=== PATIENT | female | born 1935 | race Caucasian/White ===

== ENCOUNTER 2019-03-02 15:31 | Observation (INO) | payer MEDICARE, BC ==
[2019-03-02 17:23] LABS: BLOOD UREA NITROGEN,BUN 23 mg/dL (7.0-18.0); CARBON DIOXIDE,CO2 28.6 mmol/L (21.0-32.0); CHLORIDE,CL 106 mmol/L (98-107); GLUCOSE RANDOM 155 mg/dL (74-106); LIPASE 104 U/L (73-393); POTASSIUM,K 3.1 mmol/L (3.5-5.1); SODIUM,NA 145 mmol/L (136-145)
--- NOTE | 2019-03-02 17:44 | CR ---
INDICATION: Pain TECHNIQUE: Frontal view of the chest. COMPARISON: None FINDINGS/IMPRESSION: 1. There is an indeterminate large irregular calcific density projecting over the heart. Further evaluation with CT is recommended for better characterization. 2. The cardiac silhouette is mildly enlarged. There is no airspace consolidation or pulmonary vascular congestion. There is no sizable pleural effusion or pneumothorax. 3. The visualized osseous structures are unremarkable. Dictated by Eduardo Prieto MD @ Mar 02 2019 5:39PM Signed by Dr. Eduardo Prieto @ Mar 02 2019 5:42PM
[2019-03-02] MEDS ORDERED: Iopamidol 755 MG/ML 200 ML Multipack Bottle IVPUSH ONE (18:56)
--- NOTE | 2019-03-02 19:38 | CT ---
INDICATION: Confusion today. Possible history of head trauma in the past. Daughter states patient has had eye bleeding into the head before. COMPARISON: None available. TECHNIQUE: CT examination of the head was performed with 3 mm thick axial sections without intravenous contrast. Images were obtained from the vertex of the skull through the skull base, and I examined the images with the brain and bone windows. Please note that all CT scans at this facility use dose modulation, iterative reconstruction, and/or weight-based dosing when appropriate to reduce radiation dose to as low as reasonably achievable. FINDINGS: : The brain is normal in appearance for the patient`s age on today`s study, with no sign of mass lesion, mass effect, hemorrhage, or edema. Incidental note is made of prominence of perivascular spaces in the inferior basal ganglia, left greater than right. 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 Minor small vessel ischemic changes are seen in the inferior dalton bilaterally. There is a moderate dilatation of the ventricles and mild dilatation of the sulci representing moderate central atrophy, consistent with the patient`s age. There is mild periventricular hypodensity from age appropriate small vessel ischemia. The visualized portions of the orbits are normal in appearance status post cataract surgery. Incidental note is made of senile calcifications along the nasal aspect of both anterior globes. The visualized portions of the paranasal sinuses and mastoids are clear. The osseous structures are normal in their appearance with no sign of abnormality in the skull base or calvarium. IMPRESSION: Normal noncontrast CT of the head for the patient`s age. Moderate, age-appropriate central atrophy and mild, age-appropriate small-vessel ischemic changes. Please note that all CT scans at this facility use dose modulation, iterative reconstruction, and/or weight-based dosing when appropriate to reduce radiation dose to as low as reasonably achievable. Dictated by Yordan Tolentino MD @ Mar 02 2019 7:32PM Signed by Dr. Yordan Tolenitno @ Mar 02 2019 7:36PM
--- NOTE | 2019-03-02 19:55 | CT ---
INDICATION: Abnormal chest x-ray. Pain. TECHNIQUE: CT chest was acquired with 75 cc Isovue 370 IV contrast. COMPARISON: Chest x-ray March 02, 2019. FINDINGS: Lungs and pleural: Solitary noncalcified 7 mm nodule is in the superior posterior right lower lobe on series 202, image 49. Remainder of the lungs are clear. No pleural effusions, pleural thickening, or pneumothorax. Heart and vasculature: Moderate cardiomegaly. There is an irregular calcification in the wall of the left ventricle.Great vessels are normal in caliber. Lymph nodes/mediastinum: No mediastinal, hilar, or axillary adenopathy. Thyroid gland is normal. Chest wall: No masses. Upper abdomen: There is a moderate-sized gallbladder stone with evidence of gallbladder wall edema. Right kidney is atrophic. Bones: Unremarkable for age. IMPRESSION: 1. Relatively large irregular calcification is present in the wall of the left heart ventricle. 2. Solitary 7 mm pulmonary nodule in the right lower lobe is indeterminate. This should be managed per Fleischner society guidelines which are provided below. 3. Cholelithiasis with gallbladder wall edema consistent with acute cholecystitis. SOCIETY GUIDELINES - SOLID NODULES: SINGLE LOW RISK - nodule less than 6 mm: No routine follow-up. - nodule 6-8 mm: CT at 6-12 months, then consider CT at 18-24 months. - nodule greater than 8 mm: Consider CT at 3 months, PET/CT or tissue sampling. SINGLE HIGH RISK - nodule less than 6 mm: Optional CT at 12 months. - nodule 6-8 mm: CT at 6-12 months, then CT at 18-24 months. - nodule greater than 8 mm: Consider CT at 3 months, PET/CT or tissue sampling. Please note that all CT scans at this facility use dose modulation, iterative reconstruction, and/or weight-based dosing when appropriate to reduce radiation dose to as low as reasonably achievable. Dictated by Jimmy Sanchez MD @ Mar 02 2019 7:38PM Signed by Dr. Jimmy Sanchez @ Mar 02 2019 7:54PM
[2019-03-02] MEDS ORDERED: Sodium Chloride 0.9% 1,000 ML IV ONE (20:14)
[2019-03-02] MEDS ORDERED: Piperacillin/Tazobactam 3.375 GM in Sodium Chloride 0.9% 50 ML IV ONE (20:15)
--- NOTE | 2019-03-02 20:18 | EDM.PDOC ---
ED HPI GENERAL MEDICAL PROBLEM - General Chief Complaint: General Stated Complaint: PT CLAIMS POSSIBLE UTI. DIZZY CONFUSED. Time Seen by Provider: 03/02/19 16:00 - History of Present Illness INITIAL COMMENTS - FREE TEXT/NARRATIVE: HPI 83-year-old female presents from a group home with one day of increased weakness in the setting of one week of mildly increased confusion, patient notes mild GI upset without nausea, vomiting, diarrhea. Patient continues to take PO adequately pass urine, flatus, stool baseline, no further known changes in her health. History obtained from: patient and patients adult daughter. Medication list reviewed and notable for losartan 100 mg q.d., metoprolol tartrate 50 mg b.i.d., [place] 10-325 b.i.d., furosemide 60 mg q.d., primidone 150 mg QID M///SocHx notable for: please see HPI; remainder reviewed with patient and in chart. ROS: Negative constitutional, eye, cardiovascular, pulmonary, GI, , MSK, skin , neurologic, psychiatric, endocrine unless noted in the HPI. Exam HR 90, RR 18, BP 151/103, T 36.9C, SaO2 96% on room air. Gen: Pleasant, non-toxic appearing, resting comfortably. HEENT: Normocephalic, atraumatic Resp: Clear to auscultation bilaterally, normal work of breathing with no accessory muscle usage. Card: Regular rate and rhythm with no murmurs rubs or gallops. No JVD. No pedal edema bilaterally. GI: Nontender to palpation throughout all quadrants. Nondistended. : No CVA tenderness to percussion bilaterally. No suprapubic tenderness or palpable masses. MSK: No visible deformities, strength and tone within normal limits. Skin: Normal color with no visible lesions. Neuro: alert and oriented to self and location, no facial asymmetry, no gaze preference, no slurring of speech. Pupils equal and reactive, EOMI, no facial asymmetry, no nystagmus, phonation intact, SCM 5/5 bilaterally. Cerebellar: bilateral upper extremities without dysmetria. Psych: Mood and affect appropriate. Labs / Imaging (pertinent): WBC 11.6, HB 14.4, sodium 145, potassium 3.1, glucose 155, TSH 0.40, AST 35, ALT 38, total bilirubin 0.6, alkaline phosphatase 127. Troponin < 0.050. CXR: 1. There is an indeterminate large irregular calcific density projecting over the heart. Further evaluation with CT is recommended for better characterization 2. The cardiac silhouette is mildly enlarged There is no airspace consolidation or pulmonary vascular congestion. There is no sizable pleural effusion or pneumothorax. 3. The visualized osseous structures are unremarkable. EKG: SR 84 bpm, first-degree AV block, RBBB, no ST segment elevations or depressions. No hyperacute T waves. UA few bacteria, rare epithelial cells, negative nitrate, negative leukocyte esterase. CT chest: 1. Relatively large irregular calcification is present in the wall of the left heart ventricle. 2 Solitary 7mm pulmonary nodule in the right lower lobe is indeterminate. This should be managed per Fleischner society guidelines which are provided below. 3. Cholelithiasis with gallbladder wall edema consistent with acute cholecystitis. MDM Previous chart, nursing note, and vitals reviewed. A: 83-year-old female presents from a group home with one day of increased weakness in the setting of one week of mildly increased confusion, patient notes mild GI upset without nausea, vomiting, diarrhea. DDx: CVA, ACS/UA, UTI, pneumonia, electrolyte abnormalities,anemia, hypothyroidism, hypothermia. Evaluation: * CVA: Examination without evidence of focal neuro deficit and history without evidence of resolved focal neuro deficit making stroke or TIA unlikely. * ACS/UA: Doubt ACS given a nonischemic EKG and negative troponin, history without clear evidence of symptoms consistent with unstable angina. * UTI: Urinalysis without evidence of infection. * Pneumonia: no clear evidence of pneumonia by imaging. Abnormality noted on plain film, this led to a contrasted CT which was without clear evidence of acute cardiopulmonary abnormality. Incidental findings are noted below. * Heme/Lytes/Thyroid: CBC, BMP, and TSH are clinically within normal limits. * Other: Incidental finding on contrast to the CT noting gallbladder wall thickening c/w acute cholecystitis. While this cannot be definitively excluded is a poor fit for the overall symptoms (absence of abdominal pain, normal liver enzymes). Dr. Dietz, the general surgeon contemporary or modern dancer, was consulted, recommended admission to the hospitalist, IV antibiotics (Zosyn), IVF, and repeat evaluation in the morning. Impression: weakness, ? cholecystitis. (please reference below for remainder of encounter information) Critical Care Time Organ system(s): GI. Intervention: Assessment of the patient, interpretation of studies, communication related to patient care. Time: 30 minutes were spent directly related to patient care exclusive of separately billed procedures - Related Data Allergies Allergy/AdvReac Type Severity Reaction Status Date / Time morphine Allergy Cannot Verified 03/02/19 16:07 Remember pregabalin [From Lyrica] Allergy Cannot Verified 03/02/19 16:07 Remember Home Meds: Home Meds Acetaminophen [Tylenol Arthritis Pain] 650 mg PO Q4H PRN 03/02/19 [History] Alum Hydrox/Mag Hydrox/Simeth [Maalox Advanced] 15 - 30 ml PO ASDIRECTED [History] Calcium Carb, Citrate/Vit D3 [Calcium + D3 ER Tablet] 1 tab PO BID 03/02/19 [ History] Carboxymethylcellulose Sodium [Artificial Tears] 1 drop EYEBOTH QID PRN [History] Celecoxib [CeleBREX] 200 mg PO DAILY 03/02/19 [History] Furosemide [Lasix] 20 mg PO DAILY 03/02/19 [History] Glucosam/Chond/Collagen/Hyalur [Glucosamine Chondroitin] 2 tab PO DAILY [History] Hydrocodone/Acetaminophen [[place] 10-325 Tablet] 1 tab PO Q6H PRN 03/02/19 [ History] Hydrocortisone [Hydrocortisone 2.5% Crm] 1 dose TOP ASDIRECTED 03/02/19 [History ] Loperamide [Imodium] 2 mg PO ASDIRECTED 03/02/19 [History] Losartan [Cozaar] 100 mg PO DAILY 03/02/19 [History] Magnesium Hydroxide [Milk of Magnesia] 30 ml PO ASDIRECTED 03/02/19 [History] Metoprolol Succinate [Toprol Xl] 50 mg PO BID 03/02/19 [History] Multivitamin [Multi-Vitamin Daily] 1 tab PO DAILY 03/02/19 [History] [place]-3/DHA/Epa/Fish Oil [[place] 3 500 Softgel] 1,000 mg PO BID 03/02/19 [History ] Primidone [Mysoline] 150 mg PO BID 03/02/19 [History] guaiFENesin/Codeine Phosphate [Guaiatussin AC] 1 tsp PO Q4H PRN 03/02/19 [ History] Past Medical History HEENT History: Reports: Glaucoma, Sinusitis Cardiovascular History: Reports: Hypertension Musculoskeletal History: Reports: Back Pain, Chronic - Infectious Disease History Infectious Disease History: Reports: Chicken Pox, Measles Social & Family History - Family History Family Medical History: Noncontributory - Tobacco Use Smoking Status *Q: Never Smoker - Recreational Drug Use Recreational Drug Use: No ED ROS GENERAL - Review of Systems Review Of Systems: See Below ED EXAM, GENERAL - Physical Exam Exam: See Below Course - Vital Signs Last Recorded V/S: Last Vital Signs Temp 36.9 C 03/02/19 16:04 Pulse 90 03/02/19 16:04 Resp 18 03/02/19 16:04 BP 151/103 H 03/02/19 16:04 Pulse Ox 96 03/02/19 16:04 - Orders/Labs/Meds Orders: Active Orders 24 hr Category Date Time Status EKG 12 Lead [EKG Documentation Completion] [RC] STAT Care 03/02/19 16:17 Active Piperacillin/Tazobactam [Piperacil-Tazobact] 3.375 gm Med 03/02/19 20:15 Ordered Sodium Chloride 0.9% [Normal Saline] 50 ml IV ONETIME Sodium Chloride 0.9% [Normal Saline] 1,000 ml Med 03/02/19 20:14 Ordered IV .Bolus Labs: Laboratory Tests 03/02/19 03/02/19 03/02/19 Range/Units 16:35 16:35 17:45 WBC 11.57 H (4.0-11.0) K/uL RBC 4.47 (4.30-5.90) M/uL Hgb 14.4 (12.0-16.0) g/dL Hct 42.9 (36.0-46.0) % MCV 96.0 (80.0-98.0) fL MCH 32.2 H (27.0-32.0) pg MCHC 33.6 (31.0-37.0) g/dL RDW Std Deviation 48.2 (28.0-62.0) fl RDW Coeff of N[place]um 14 (11.0-15.0) % Plt Count 172 (150-400) K/uL MPV 9.50 (7.40-12.00) fL Neut % (Auto) 75.4 (48.0-80.0) % Lymph % (Auto) 11.1 L (16.0-40.0) % [place] % (Auto) 13.0 (0.0-15.0) % Eos % (Auto) 0.3 (0.0-7.0) % Baso % (Auto) 0.2 (0.0-1.5) % Neut # (Auto) 8.7 H (1.4-5.7) K/uL Lymph # (Auto) 1.3 (0.6-2.4) K/uL [place] # (Auto) 1.5 H (0.0-0.8) K/uL Eos # (Auto) 0.0 (0.0-0.7) K/uL Baso # (Auto) 0.0 (0.0-0.1) K/uL Nucleated RBC % 0.0 /100WBC Nucleated RBCs # 0 K/uL Sodium 145 (136-145) mmol/L Potassium 3.1 L (3.5-5.1) mmol/L Chloride 106 (98-107) mmol/L Carbon Dioxide 28.6 (21.0-32.0) mmol/L BUN 23 H (7.0-18.0) mg/dL Creatinine 1.1 H (0.6-1.0) mg/dL Est Cr Clr Drug Dosing 31.49 mL/min Estimated GFR (MDRD) 47.3 ml/min Glucose 155 H (74-106) mg/dL Calcium 9.1 (8.5-10.1) mg/dL Total Bilirubin 0.6 (0.2-1.0) mg/dL AST 35 (15-37) IU/L ALT 38 (14-63) IU/L Alkaline Phosphatase 127 H (46-116) U/L Troponin I < 0.050 (0.000-0.056) ng/mL Total Protein 7.4 (6.4-8.2) g/dL Albumin 3.2 L (3.4-5.0) g/dL Globulin 4.2 H (2.6-4.0) g/dL Albumin/Globulin Ratio 0.8 L (0.9-1.6) Lipase 104 (73-393) U/L TSH 3rd Generation 0.40 (0.36-3.74) uIU/mL Urine Color YELLOW Urine Appearance CLEAR Urine pH 5.5 (5.0-8.0) Ur Specific [place] 1.020 (1.001-1.035) Urine Protein NEGATIVE (NEGATIVE) mg/dL Urine Glucose (UA) NEGATIVE (NEGATIVE) mg/dL Urine Ketones NEGATIVE (NEGATIVE) mg/dL Urine Occult Blood SMALL H (NEGATIVE) Urine Nitrite NEGATIVE (NEGATIVE) Urine Bilirubin NEGATIVE (NEGATIVE) Urine Urobilinogen 0.2 (<2.0) EU/dL Ur Leukocyte Esterase NEGATIVE (NEGATIVE) Urine RBC 1-3 (0-2/HPF) Urine WBC 0-3 (0-5/HPF) Ur Epithelial Cells RARE (NONE-FEW) Urine Bacteria FEW (NEGATIVE) Urine Mucus LIGHT (NONE-MOD) Meds: Medications Discontinued Medications Generic Name Dose Route Start Last Admin Trade Name Kin PRN Reason Stop Dose Admin Iopamidol 100 ml 03/02/19 18:56 03/02/19 18:57 Isovue Multipack-370 (76%) IVPUSH 03/02/19 18:57 100 ml ONETIME ONE Administration Departure - Departure Time of Disposition: 20:17 Disposition: Admitted As Inpatient 65 Clinical Impression: Weakness, Acute cholecystitis - Discharge Information Referrals: Tyrone White MD [Primary Care Provider] - Sepsis Event Note - Evaluation Sepsis Screening Result: No Definite Risk - Focused Exam Vital Signs: Vital Signs Temp Pulse Resp BP Pulse Ox 03/02/19 16:04 36.9 C 90 18 151/103 H 96 Date Exam was Performed: 03/02/19 Time Exam was Performed: 20:15 - My Orders Last 24 Hours: My Active Orders 03/02/19 16:17 EKG 12 Lead [EKG Documentation Completion] [RC] STAT 03/02/19 20:14 Sodium Chloride 0.9% [Normal Saline] 1,000 ml IV .Bolus 03/02/19 20:15 Piperacillin/Tazobactam [Piperacil-Tazobact] 3.375 gm Sodium Chloride 0.9% [ Normal Saline] 50 ml IV ONETIME - Assessment/Plan Last 24 Hours: My Active Orders 03/02/19 16:17 EKG 12 Lead [EKG Documentation Completion] [RC] STAT 03/02/19 20:14 Sodium Chloride 0.9% [Normal Saline] 1,000 ml IV .Bolus 03/02/19 20:15 Piperacillin/Tazobactam [Piperacil-Tazobact] 3.375 gm Sodium Chloride 0.9% [ Normal Saline] 50 ml IV ONETIME
[2019-03-02] MEDS ORDERED: Ondansetron 4 MG/2 ML SDV IVPUSH PRN (22:51)
[2019-03-02] MEDS ORDERED: Potassium Chloride 20 MEQ Tab.ER PO ONE (22:59)
--- NOTE | 2019-03-02 23:00 | PCM.HP.2 ---
H&P History of Present Illness - General Date of Service: 03/02/19 Admit Problem/Dx: Admission Diagnosis/Problem Admission Diagnosis/Problem Weakness - History of Present Illness Initial Comments - Free Text/Narative: 83 yo female with pmh of dementia, HTN and chronic back pain who presents to the ED due to complaints of weakness. She lives at the [facility] and daughter noted she had difficulty walking. Patient reported nausea this morning but that had resolved by this afternoon. PAtient does get nausea intermitently over the past several months. She denies any fevers or chills. Patient had a chest CT which showed acute cholecystitis. IT also reported large calcified lesion of left ventricle and 7mm pulmonary nodule. Patient and family are not interested in any surgery and would not want a cholecystectomy. - Related Data Allergies/Adverse Reactions: Allergies Allergy/AdvReac Type Severity Reaction Status Date / Time morphine Allergy Cannot Verified 03/02/19 22:04 Remember pregabalin [From Lyrica] Allergy Cannot Verified 03/02/19 22:04 Remember Home Medications: Home Meds Acetaminophen [Tylenol Arthritis Pain] 650 mg PO Q4H PRN 03/02/19 [History] Alum Hydrox/Mag Hydrox/Simeth [Maalox Advanced] 15 - 30 ml PO ASDIRECTED [History] Calcium Carb, Citrate/Vit D3 [Calcium + D3 ER Tablet] 1 tab PO BID 03/02/19 [ History] Carboxymethylcellulose Sodium [Artificial Tears] 1 drop EYEBOTH QID PRN [History] Celecoxib [CeleBREX] 200 mg PO DAILY 03/02/19 [History] Furosemide [Lasix] 20 mg PO DAILY 03/02/19 [History] Glucosam/Chond/Collagen/Hyalur [Glucosamine Chondroitin] 2 tab PO DAILY [History] Hydrocodone/Acetaminophen [[place] 10-325 Tablet] 1 tab PO Q6H PRN 03/02/19 [ History] Hydrocortisone [Hydrocortisone 2.5% Crm] 1 dose TOP ASDIRECTED 03/02/19 [History ] Loperamide [Imodium] 2 mg PO ASDIRECTED 03/02/19 [History] Losartan [Cozaar] 100 mg PO DAILY 03/02/19 [History] Magnesium Hydroxide [Milk of Magnesia] 30 ml PO ASDIRECTED 03/02/19 [History] Metoprolol Succinate [Toprol Xl] 50 mg PO BID 03/02/19 [History] Multivitamin [Multi-Vitamin Daily] 1 tab PO DAILY 03/02/19 [History] [place]-3/DHA/Epa/Fish Oil [[place] 3 500 Softgel] 1,000 mg PO BID 03/02/19 [History ] Primidone [Mysoline] 150 mg PO BID 03/02/19 [History] guaiFENesin/Codeine Phosphate [Guaiatussin AC] 1 tsp PO Q4H PRN 03/02/19 [ History] Past Medical History HEENT History: Reports: Glaucoma, Sinusitis Cardiovascular History: Reports: High Cholesterol, Hypertension Gastrointestinal History: Reports: Chronic Constipation Genitourinary History: Reports: Urinary Incontinence [employer] 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: Musculoskeletal History: Reports: Arthritis, Back Pain, Chronic Neurological History: Reports: Other (See Below) Other Neuro History: Tremors Psychiatric History: Reports: Dementia Endocrine/Metabolic History: Reports: Obesity/BMI 30+ - Infectious Disease History Infectious Disease History: Reports: Chicken Pox, Measles - Past Surgical History HEENT Surgical History: Reports: None Cardiovascular Surgical History: Reports: None Respiratory Surgical History: Reports: None GI Surgical History: Reports: None Female Surgical History: Reports: Kidney stone extraction Endocrine Surgical History: Reports: None Musculoskeletal Surgical History: Reports: Hip Replacement Other Musculoskeletal Surgeries/Procedures:: bilateral hip replacement Dermatological Surgical History: Reports: None Social & Family History - Family History Family Medical History: Noncontributory Cardiac: Reports: [place] - Tobacco Use Smoking Status *Q: Never Smoker - Caffeine Use Caffeine Use: Reports: Coffee - Recreational Drug Use Recreational Drug Use: No H&P Review of Systems - Review of Systems: Review Of Systems: Comprehensive ROS is negative, except as noted in HPI. Exam - Exam Exam: See Below - Vital Signs Vital Signs: Last Vital Signs Temp 37.1 C 03/02/19 21:59 Pulse 88 03/02/19 21:59 Resp 20 03/02/19 21:59 BP 142/65 H 03/02/19 21:59 Pulse Ox 95 03/02/19 21:59 Weight: 89.584 kg - Exam General: Alert, Cooperative Lungs: Clear to Auscultation, Normal Respiratory Effort Cardiovascular: Regular Rate, Regular Rhythm GI/Abdominal Exam: Normal Bowel Sounds, Soft, Non-Tender, No Organomegaly, No Distention Extremities: Non-Tender, Pedal Edema (+1 edema) Skin: Warm, Dry, Intact - Patient Data Lab Results Last 24 hrs: Laboratory Results - last 24 hr 03/02/19 03/02/19 03/02/19 Range/Units 16:35 16:35 17:45 WBC 11.57 H (4.0-11.0) K/uL RBC 4.47 (4.30-5.90) M/uL Hgb 14.4 (12.0-16.0) g/dL Hct 42.9 (36.0-46.0) % MCV 96.0 (80.0-98.0) fL MCH 32.2 H (27.0-32.0) pg MCHC 33.6 (31.0-37.0) g/dL RDW Std Deviation 48.2 (28.0-62.0) fl RDW Coeff of [place] 14 (11.0-15.0) % Plt Count 172 (150-400) K/uL MPV 9.50 (7.40-12.00) fL Neut % (Auto) 75.4 (48.0-80.0) % Lymph % (Auto) 11.1 L (16.0-40.0) % [place] % (Auto) 13.0 (0.0-15.0) % Eos % (Auto) 0.3 (0.0-7.0) % Baso % (Auto) 0.2 (0.0-1.5) % Neut # (Auto) 8.7 H (1.4-5.7) K/uL Lymph # (Auto) 1.3 (0.6-2.4) K/uL [place] # (Auto) 1.5 H (0.0-0.8) K/uL Eos # (Auto) 0.0 (0.0-0.7) K/uL Baso # (Auto) 0.0 (0.0-0.1) K/uL Nucleated RBC % 0.0 /100WBC Nucleated RBCs # 0 K/uL Sodium 145 (136-145) mmol/L Potassium 3.1 L (3.5-5.1) mmol/L Chloride 106 (98-107) mmol/L Carbon Dioxide 28.6 (21.0-32.0) mmol/L BUN 23 H (7.0-18.0) mg/dL Creatinine 1.1 H (0.6-1.0) mg/dL Est Cr Clr Drug Dosing 31.49 mL/min Estimated GFR (MDRD) 47.3 ml/min Glucose 155 H (74-106) mg/dL Calcium 9.1 (8.5-10.1) mg/dL Total Bilirubin 0.6 (0.2-1.0) mg/dL AST 35 (15-37) IU/L ALT 38 (14-63) IU/L Alkaline Phosphatase 127 H (46-116) U/L Troponin I < 0.050 (0.000-0.056) ng/mL Total Protein 7.4 (6.4-8.2) g/dL Albumin 3.2 L (3.4-5.0) g/dL Globulin 4.2 H (2.6-4.0) g/dL Albumin/Globulin Ratio 0.8 L (0.9-1.6) Lipase 104 (73-393) U/L TSH 3rd Generation 0.40 (0.36-3.74) uIU/mL Urine Color YELLOW Urine Appearance CLEAR Urine pH 5.5 (5.0-8.0) Ur Specific [place] 1.020 (1.001-1.035) Urine Protein NEGATIVE (NEGATIVE) mg/dL Urine Glucose (UA) NEGATIVE (NEGATIVE) mg/dL Urine Ketones NEGATIVE (NEGATIVE) mg/dL Urine Occult Blood SMALL H (NEGATIVE) Urine Nitrite NEGATIVE (NEGATIVE) Urine Bilirubin NEGATIVE (NEGATIVE) Urine Urobilinogen 0.2 (<2.0) EU/dL Ur Leukocyte Esterase NEGATIVE (NEGATIVE) Urine RBC 1-3 (0-2/HPF) Urine WBC 0-3 (0-5/HPF) Ur Epithelial Cells RARE (NONE-FEW) Urine Bacteria FEW (NEGATIVE) Urine Mucus LIGHT (NONE-MOD) Result Diagrams: 03/02/19 16:35 03/02/19 16:35 Joselito Results Last 24 hrs: Microbiology 03/02/19 16:35 Influenza Type A Antigen Screen - Final Nasopharyngeal Swab NEGATIVE INFLUENZA A VIRUS AG REFERENCE RANGE: NEGATIVE Influenza Type B Antigen Screen - Final NEGATIVE INFLUENZA B VIRUS AG REFERENCE RANGE: NEGATIVE Sepsis Event Note - Evaluation Sepsis Screening Result: No Definite Risk - Focused Exam Vital Signs: Vital Signs Temp Pulse Resp BP Pulse Ox 03/02/19 21:59 37.1 C 88 20 142/65 H 95 03/02/19 20:48 79 16 149/95 H 95 03/02/19 16:04 36.9 C 90 18 151/103 H 96 Date Exam was Performed: 03/02/19 Time Exam was Performed: 22:54 Problem List Initiated/Reviewed/Updated: Yes Orders Last 24hrs: Active Orders 24 hr Category Date Time Status Patient Status [ADT] Stat ADT 03/02/19 20:18 Active Antiembolic Devices [RC] PER UNIT ROUTINE Care 03/02/19 22:52 Ordered EKG 12 Lead [EKG Documentation Completion] [RC] STAT Care 03/02/19 16:17 Active Oxygen Therapy [RC] PRN Care 03/02/19 22:51 Ordered Up ad Cinthia [RC] ASDIRECTED Care 03/02/19 22:51 Ordered VTE/DVT Education [RC] PER UNIT ROUTINE Care 03/02/19 22:51 Ordered Vital Signs [RC] Q4H Care 03/02/19 22:51 Ordered Clear Liquid Diet [DIET] Diet 03/02/19 Breakfast Ordered CBC W/O DIFF,HEMOGRAM [HEME] AM Lab 03/03/19 05:11 Ordered COMPREHENSIVE METABOLIC PN,CMP [CHEM] AM Lab 03/03/19 05:11 Ordered Hydrocodone/Acetaminophen Med 03/02/19 22:47 Ordered 1 tab PO Q6H PRN Losartan Med 03/03/19 09:00 Ordered 100 mg PO DAILY Metoprolol Succinate [Toprol XL] Med 03/03/19 09:00 Ordered 50 mg PO BID Ondansetron [Zofran] Med 03/02/19 22:51 Ordered 4 mg IVPUSH Q4H PRN Piperacillin/Tazobactam [Piperacil-Tazobact] 3.375 gm Med 03/03/19 02:00 Ordered Sodium Chloride 0.9% [Normal Saline] 50 ml IV Q6H Primidone [Mysoline] Med 03/03/19 09:00 Ordered 150 mg PO BID Sequential Compression Device [OM.PC] Per Unit Routine Oth 03/02/19 22:51 Ordered Resuscitation Status Routine Resus Stat 03/02/19 22:51 Ordered Medication Orders Hydrocodone Bitart/Acetaminophen ([place] 325-10 Mg) 1 tab PO Q6H PRN PRN Reason: PAIN Piperacillin Sod/Tazobactam (Sod 3.375 gm/ Sodium Chloride) 50 mls @ 100 mls/ hr IV Q6H [place] Losartan Potassium (Cozaar) 100 mg PO DAILY [place] Metoprolol Succinate (Toprol Xl) 50 mg PO BID [place] Ondansetron HCl (Zofran) 4 mg IVPUSH Q4H PRN PRN Reason: Nausea Primidone (Mysoline) 150 mg PO BID [place] Assessment/Plan Comment:: 83 yo female admitted for generalized weakness likely due to acute cholecystectomy. We will treat with IV Zosyn and monitor overnight. PT has been consulted.
[2019-03-03] MEDS ORDERED: Piperacillin/Tazobactam 3.375 GM in Sodium Chloride 0.9% 50 ML IV SCH (02:00)
[2019-03-03] MEDS: Piperacillin/Tazobactam 2.25 GM in Sodium Chloride 0.9% 50 ML IV SCH ×2 (03:17→08:24)
[2019-03-03 05:30] LABS: CARBON DIOXIDE,CO2 28.3 mmol/L (21.0-32.0); POTASSIUM,K 3.4 mmol/L (3.5-5.1)
[2019-03-03] MEDS ORDERED: Potassium Chloride 20 MEQ Tab.ER PO ONE (08:11)
[2019-03-03] MEDS: Metoprolol Succinate 50 MG Tab.ER PO SCH ×2 (08:21→22:05)
[2019-03-03] MEDS: Losartan 50 MG Tab PO SCH (08:22)
[2019-03-03] MEDS: Primidone 50 MG Tab PO SCH ×2 (09:13→22:05)
--- NOTE | 2019-03-03 10:57 | PCM.CONS ---
H&P History of Present Illness - General Date of Service: 03/03/19 Admit Problem/Dx: Admission Diagnosis/Problem Admission Diagnosis/Problem Weakness Source of Information: Provider History Limitations: Reports: Other (Dementia ) - History of Present Illness Initial Comments - Free Text/Narative: Patient is an 83 year old female who presented to the ER last evening with increased weakness. Per the ER provider notes there was also some associated nausea and possible GI upset. The patient has a history of HTN and dementia. Her vital signs were stable other than being hypertensive. Her WBC was mildly elevated at 11K. Her alk phos was elevated at 127. The remainder of her LFTs were normal. The patient had a CT chest performed which showed a pulmonary nodule, a calcified lesion in the left ventricle and cholelithiasis with edema of the gallbladder wall consistent with possible acute cholecystitis. She was admitted to the hospitalist team for IV antibiotics and fluid resuscitation. This morning her alk phos and WBC are normal. there were no acute events overnight. - Related Data Allergies/Adverse Reactions: Allergies Allergy/AdvReac Type Severity Reaction Status Date / Time morphine Allergy Cannot Verified 03/02/19 22:04 Remember pregabalin [From Lyrica] Allergy Cannot Verified 03/02/19 22:04 Remember Home Medications: Home Meds Acetaminophen [Tylenol Arthritis Pain] 650 mg PO Q4H PRN 03/02/19 [History] Alum Hydrox/Mag Hydrox/Simeth [Maalox Advanced] 15 - 30 ml PO ASDIRECTED [History] Calcium Carb, Citrate/Vit D3 [Calcium + D3 ER Tablet] 1 tab PO BID 03/02/19 [ History] Carboxymethylcellulose Sodium [Artificial Tears] 1 drop EYEBOTH QID PRN [History] Celecoxib [CeleBREX] 200 mg PO DAILY 03/02/19 [History] Furosemide [Lasix] 60 mg PO DAILY 03/02/19 [History] Glucosam/Chond/Collagen/Hyalur [Glucosamine Chondroitin] 2 tab PO DAILY [History] Hydrocodone/Acetaminophen [[place] 10-325 Tablet] 1 tab PO Q6H PRN 03/02/19 [ History] Hydrocortisone [Hydrocortisone 2.5% Crm] 1 dose TOP ASDIRECTED 03/02/19 [History ] Loperamide [Imodium] 2 mg PO ASDIRECTED 03/02/19 [History] Losartan [Cozaar] 100 mg PO DAILY 03/02/19 [History] Magnesium Hydroxide [Milk of Magnesia] 30 ml PO ASDIRECTED 03/02/19 [History] Metoprolol Succinate [Toprol Xl] 50 mg PO BID 03/02/19 [History] Multivitamin [Multi-Vitamin Daily] 1 tab PO DAILY 03/02/19 [History] [place]-3/DHA/Epa/Fish Oil [[place] 3 500 Softgel] 1,000 mg PO BID 03/02/19 [History ] Primidone [Mysoline] 150 mg PO BID 03/02/19 [History] guaiFENesin/Codeine Phosphate [Guaiatussin AC] 1 tsp PO Q4H PRN 03/02/19 [ History] Past Medical History HEENT History: Reports: Glaucoma, Sinusitis Cardiovascular History: Reports: High Cholesterol, Hypertension Gastrointestinal History: Reports: Chronic Constipation Genitourinary History: Reports: Urinary Incontinence 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: Musculoskeletal History: Reports: Arthritis, Back Pain, Chronic Neurological History: Reports: Other (See Below) Other Neuro History: Tremors Psychiatric History: Reports: Dementia Endocrine/Metabolic History: Reports: Obesity/BMI 30+ - Infectious Disease History Infectious Disease History: Reports: Chicken Pox, Measles - Past Surgical History HEENT Surgical History: Reports: None Cardiovascular Surgical History: Reports: None Respiratory Surgical History: Reports: None GI Surgical History: Reports: None Female Surgical History: Reports: Kidney stone extraction Endocrine Surgical History: Reports: None Musculoskeletal Surgical History: Reports: Hip Replacement Other Musculoskeletal Surgeries/Procedures:: bilateral hip replacement Dermatological Surgical History: Reports: None Social & Family History - Family History Family Medical History: Noncontributory Cardiac: Reports: [place] - Tobacco Use Smoking Status *Q: Never Smoker - Caffeine Use Caffeine Use: Reports: Coffee - Recreational Drug Use Recreational Drug Use: No H&P Review of Systems - Review of Systems: Review Of Systems: Unable To Obtain Reason Not Obtained: dementia Exam - Exam Exam: See Below - Vital Signs Vital Signs: Last Vital Signs Temp 36.2 C 03/03/19 07:10 Pulse 95 03/03/19 08:21 Resp 16 03/03/19 07:10 BP 142/44 H 03/03/19 08:22 Pulse Ox 94 L 03/03/19 07:10 Weight: 89.584 kg - Exam General: Alert, Cooperative HEENT: Conjunctiva Clear, Mucosa Moist & [place], Posterior Pharynx Clear Lungs: Normal Respiratory Effort Cardiovascular: Regular Rate GI/Abdominal Exam: Soft, Non-Tender, No Distention, No Mass Extremities: Normal Inspection - Patient Data Lab Results Last 24 hrs: Laboratory Results - last 24 hr 03/02/19 03/02/19 03/02/19 Range/Units 16:35 16:35 17:45 WBC 11.57 H (4.0-11.0) K/uL RBC 4.47 (4.30-5.90) M/uL Hgb 14.4 (12.0-16.0) g/dL Hct 42.9 (36.0-46.0) % MCV 96.0 (80.0-98.0) fL MCH 32.2 H (27.0-32.0) pg MCHC 33.6 (31.0-37.0) g/dL RDW Std Deviation 48.2 (28.0-62.0) fl RDW Coeff of [place] 14 (11.0-15.0) % Plt Count 172 (150-400) K/uL MPV 9.50 (7.40-12.00) fL Neut % (Auto) 75.4 (48.0-80.0) % Lymph % (Auto) 11.1 L (16.0-40.0) % [place] % (Auto) 13.0 (0.0-15.0) % Eos % (Auto) 0.3 (0.0-7.0) % Baso % (Auto) 0.2 (0.0-1.5) % Neut # (Auto) 8.7 H (1.4-5.7) K/uL Lymph # (Auto) 1.3 (0.6-2.4) K/uL [place] # (Auto) 1.5 H (0.0-0.8) K/uL Eos # (Auto) 0.0 (0.0-0.7) K/uL Baso # (Auto) 0.0 (0.0-0.1) K/uL Nucleated RBC % 0.0 /100WBC Nucleated RBCs # 0 K/uL Sodium 145 (136-145) mmol/L Potassium 3.1 L (3.5-5.1) mmol/L Chloride 106 (98-107) mmol/L Carbon Dioxide 28.6 (21.0-32.0) mmol/L BUN 23 H (7.0-18.0) mg/dL Creatinine 1.1 H (0.6-1.0) mg/dL Est Cr Clr Drug Dosing 31.49 mL/min Estimated GFR (MDRD) 47.3 ml/min Glucose 155 H (74-106) mg/dL Calcium 9.1 (8.5-10.1) mg/dL Total Bilirubin 0.6 (0.2-1.0) mg/dL AST 35 (15-37) IU/L ALT 38 (14-63) IU/L Alkaline Phosphatase 127 H (46-116) U/L Troponin I < 0.050 (0.000-0.056) ng/mL Total Protein 7.4 (6.4-8.2) g/dL Albumin 3.2 L (3.4-5.0) g/dL Globulin 4.2 H (2.6-4.0) g/dL Albumin/Globulin Ratio 0.8 L (0.9-1.6) Lipase 104 (73-393) U/L TSH 3rd Generation 0.40 (0.36-3.74) uIU/mL Urine Color YELLOW Urine Appearance CLEAR Urine pH 5.5 (5.0-8.0) Ur Specific [place] 1.020 (1.001-1.035) Urine Protein NEGATIVE (NEGATIVE) mg/dL Urine Glucose (UA) NEGATIVE (NEGATIVE) mg/dL Urine Ketones NEGATIVE (NEGATIVE) mg/dL Urine Occult Blood SMALL H (NEGATIVE) Urine Nitrite NEGATIVE (NEGATIVE) Urine Bilirubin NEGATIVE (NEGATIVE) Urine Urobilinogen 0.2 (<2.0) EU/dL Ur Leukocyte Esterase NEGATIVE (NEGATIVE) Urine RBC 1-3 (0-2/HPF) Urine WBC 0-3 (0-5/HPF) Ur Epithelial Cells RARE (NONE-FEW) Urine Bacteria FEW (NEGATIVE) Urine Mucus LIGHT (NONE-MOD) 03/03/19 03/03/19 Range/Units 04:43 04:43 WBC 10.46 (4.0-11.0) K/uL RBC 3.95 L (4.30-5.90) M/uL Hgb 12.6 (12.0-16.0) g/dL Hct 37.9 (36.0-46.0) % MCV 95.9 (80.0-98.0) fL MCH 31.9 (27.0-32.0) pg MCHC 33.2 (31.0-37.0) g/dL RDW Std Deviation 48.1 (28.0-62.0) fl RDW Coeff of [place] 14 (11.0-15.0) % Plt Count 146 L (150-400) K/uL MPV 9.50 (7.40-12.00) fL Neut % (Auto) (48.0-80.0) % Lymph % (Auto) (16.0-40.0) % [place] % (Auto) (0.0-15.0) % Eos % (Auto) (0.0-7.0) % Baso % (Auto) (0.0-1.5) % Neut # (Auto) (1.4-5.7) K/uL Lymph # (Auto) (0.6-2.4) K/uL [place] # (Auto) (0.0-0.8) K/uL Eos # (Auto) (0.0-0.7) K/uL Baso # (Auto) (0.0-0.1) K/uL Nucleated RBC % 0.0 /100WBC Nucleated RBCs # 0 K/uL Sodium 144 (136-145) mmol/L Potassium 3.4 L (3.5-5.1) mmol/L Chloride 107 (98-107) mmol/L Carbon Dioxide 28.3 (21.0-32.0) mmol/L BUN 21 H (7.0-18.0) mg/dL Creatinine 0.9 (0.6-1.0) mg/dL Est Cr Clr Drug Dosing 41.87 mL/min Estimated GFR (MDRD) 59.7 ml/min Glucose 144 H (74-106) mg/dL Calcium 8.3 L (8.5-10.1) mg/dL Total Bilirubin 0.8 (0.2-1.0) mg/dL AST 29 (15-37) IU/L ALT 34 (14-63) IU/L Alkaline Phosphatase 96 (46-116) U/L Troponin I (0.000-0.056) ng/mL Total Protein 6.1 L (6.4-8.2) g/dL Albumin 2.6 L (3.4-5.0) g/dL Globulin 3.5 (2.6-4.0) g/dL Albumin/Globulin Ratio 0.7 L (0.9-1.6) Lipase (73-393) U/L TSH 3rd Generation (0.36-3.74) uIU/mL Urine Color Urine Appearance Urine pH (5.0-8.0) Ur Specific [place] (1.001-1.035) Urine Protein (NEGATIVE) mg/dL Urine Glucose (UA) (NEGATIVE) mg/dL Urine Ketones (NEGATIVE) mg/dL Urine Occult Blood (NEGATIVE) Urine Nitrite (NEGATIVE) Urine Bilirubin (NEGATIVE) Urine Urobilinogen (<2.0) EU/dL Ur Leukocyte Esterase (NEGATIVE) Urine RBC (0-2/HPF) Urine WBC (0-5/HPF) Ur Epithelial Cells (NONE-FEW) Urine Bacteria (NEGATIVE) Urine Mucus (NONE-MOD) Result Diagrams: 03/03/19 04:43 03/03/19 04:43 Joselito Results Last 24 hrs: Microbiology 03/02/19 16:35 Influenza Type A Antigen Screen - Final Nasopharyngeal Swab NEGATIVE INFLUENZA A VIRUS AG REFERENCE RANGE: NEGATIVE Influenza Type B Antigen Screen - Final NEGATIVE INFLUENZA B VIRUS AG REFERENCE RANGE: NEGATIVE Sepsis Event Note - Evaluation Sepsis Screening Result: No Definite Risk - Focused Exam Vital Signs: Vital Signs Temp Pulse Pulse Resp BP BP Pulse Ox 03/03/19 08:22 142/44 H 03/03/19 08:21 95 142/49 H 03/03/19 07:10 36.2 C 95 16 142/49 H 94 L 03/03/19 04:00 36.7 C 91 17 133/60 93 L Date Exam was Performed: 03/03/19 Time Exam was Performed: 12:28 Consult PN Assessment/Plan Procedures: Procedures INJECT SPINE LUMBAR/SACRAL (02/18/16) MRI LUMBAR SPINE W/O DYE (02/21/14) OFFICE/OUTPATIENT VISIT EST (02/18/16) (1) Cholelithiasis and cholecystitis without obstruction SNOMED Code(s): 57638245 Code(s): K80.10 - CALCULUS OF GALLBLADDER W CHRONIC CHOLECYST W/O OBSTRUCTION Current Visit: Yes Problem List Initiated/Reviewed/Updated: Yes Plan: The patient's US report showed some thickening of the gallbladder wall in association with cholelithiasis. It was felt this is due to chronic cholecystitis. I attempted to contact the patient's power of creel selector however she is traveling and was unavailable. She is responding to antibiotics and is pain-free this morning. I would switch her over to oral Cipro and Flagyl for a 10 day course of antibiotics. Okay to advance diet to regular as tolerated. I visited with the patient's son. The family is not interested in surgery. However , if they would like she can follow-up with me in 2 weeks to go into further detail regarding her imaging findings and discuss cholelithiasis as well as what surgery would entail. Will sign off at this time. Call with any questions or concerns
--- NOTE | 2019-03-03 11:27 | US ---
Limited abdominal ultrasound: Multiple real-time images of the upper right abdomen were obtained. Comparison: No prior abdominal imaging. Liver shows no focal abnormality. Gallstones are seen within the gallbladder. Gallbladder is not well-distended with gallbladder wall thickening being seen. No biliary duct dilatation is appreciated. Right kidney is small at 8.5 cm in length compatible with mild atrophy. Pancreas that is seen appears within normal limits. Impression: 1. Gallbladder contains gallstones. Gallbladder is not well distended with gallbladder wall thickening. Findings raise the possibility of chronic cholecystitis. This could be confirmed with biliary HIDA scan with ejection fraction if clinically needed. 2. Mild atrophy of the right kidney. 3. No additional abnormality is identified. Diagnostic code #3 This report was dictated in [place] Standard Time
[2019-03-03] MEDS: Acetaminophen/HYDROcodone 325-10 MG Tab PO PRN ×2 (11:38→17:21)
--- NOTE | 2019-03-03 11:59 | US ---
Right lower extremity deep venous ultrasound: Duplex and color Doppler evaluation was obtained of the right common femoral, superficial femoral, popliteal, anterior tibial and posterior tibial veins. Comparison: No previous study. Normal compression and Doppler blood flow is seen. Subcutaneous edema is noted within the anterior distal calf. Impression: 1. Subcutaneous edema within the anterior distal calf. 2. No deep venous thrombosis is seen within the right lower extremity. Diagnostic code #2 This report was dictated in [place] Standard Time
--- NOTE | 2019-03-03 12:44 | PCM.PN ---
- General Info Date of Service: 03/03/19 Subjective Update: Bedside: pt not endorsing any pain and or discomfort. Mild non-productive cough. Denies abd. pain. - Review of Systems General: Reports: No Symptoms. Denies: Weakness, Fatigue Pulmonary: Reports: No Symptoms Cardiovascular: Reports: No Symptoms Gastrointestinal: Reports: No Symptoms Skin: Reports: Other (mild redness of right lower extrmity : chronic ) Neurological: Denies: Confusion, Dizziness, Headache - Patient Data Vitals - Most Recent: Last Vital Signs Temp 97.2 F 03/03/19 07:10 Pulse 95 03/03/19 08:21 Resp 16 03/03/19 07:10 BP 142/44 H 03/03/19 08:22 Pulse Ox 94 L 03/03/19 07:10 Weight - Most Recent: 197 lb 8 oz I&O - Last 24 Hours: Intake & Output 03/02/19 03/03/19 03/03/19 22:59 06:59 14:59 Intake Total 470 Output Total 0 Balance 470 Lab Results Last 24 Hours: Laboratory Results - last 24 hr 03/02/19 03/02/19 03/02/19 Range/Units 16:35 16:35 17:45 WBC 11.57 H (4.0-11.0) K/uL RBC 4.47 (4.30-5.90) M/uL Hgb 14.4 (12.0-16.0) g/dL Hct 42.9 (36.0-46.0) % MCV 96.0 (80.0-98.0) fL MCH 32.2 H (27.0-32.0) pg MCHC 33.6 (31.0-37.0) g/dL RDW Std Deviation 48.2 (28.0-62.0) fl RDW Coeff of [place]um 14 (11.0-15.0) % Plt Count 172 (150-400) K/uL MPV 9.50 (7.40-12.00) fL Neut % (Auto) 75.4 (48.0-80.0) % Lymph % (Auto) 11.1 L (16.0-40.0) % [place] % (Auto) 13.0 (0.0-15.0) % Eos % (Auto) 0.3 (0.0-7.0) % Baso % (Auto) 0.2 (0.0-1.5) % Neut # (Auto) 8.7 H (1.4-5.7) K/uL Lymph # (Auto) 1.3 (0.6-2.4) K/uL [place] # (Auto) 1.5 H (0.0-0.8) K/uL Eos # (Auto) 0.0 (0.0-0.7) K/uL Baso # (Auto) 0.0 (0.0-0.1) K/uL Nucleated RBC % 0.0 /100WBC Nucleated RBCs # 0 K/uL Sodium 145 (136-145) mmol/L Potassium 3.1 L (3.5-5.1) mmol/L Chloride 106 (98-107) mmol/L Carbon Dioxide 28.6 (21.0-32.0) mmol/L BUN 23 H (7.0-18.0) mg/dL Creatinine 1.1 H (0.6-1.0) mg/dL Est Cr Clr Drug Dosing 31.49 mL/min Estimated GFR (MDRD) 47.3 ml/min Glucose 155 H (74-106) mg/dL Calcium 9.1 (8.5-10.1) mg/dL Total Bilirubin 0.6 (0.2-1.0) mg/dL AST 35 (15-37) IU/L ALT 38 (14-63) IU/L Alkaline Phosphatase 127 H (46-116) U/L Troponin I < 0.050 (0.000-0.056) ng/mL Total Protein 7.4 (6.4-8.2) g/dL Albumin 3.2 L (3.4-5.0) g/dL Globulin 4.2 H (2.6-4.0) g/dL Albumin/Globulin Ratio 0.8 L (0.9-1.6) Lipase 104 (73-393) U/L TSH 3rd Generation 0.40 (0.36-3.74) uIU/mL Urine Color YELLOW Urine Appearance CLEAR Urine pH 5.5 (5.0-8.0) Ur Specific [place] 1.020 (1.001-1.035) Urine Protein NEGATIVE (NEGATIVE) mg/dL Urine Glucose (UA) NEGATIVE (NEGATIVE) mg/dL Urine Ketones NEGATIVE (NEGATIVE) mg/dL Urine Occult Blood SMALL H (NEGATIVE) Urine Nitrite NEGATIVE (NEGATIVE) Urine Bilirubin NEGATIVE (NEGATIVE) Urine Urobilinogen 0.2 (<2.0) EU/dL Ur Leukocyte Esterase NEGATIVE (NEGATIVE) Urine RBC 1-3 (0-2/HPF) Urine WBC 0-3 (0-5/HPF) Ur Epithelial Cells RARE (NONE-FEW) Urine Bacteria FEW (NEGATIVE) Urine Mucus LIGHT (NONE-MOD) 03/03/19 03/03/19 Range/Units 04:43 04:43 WBC 10.46 (4.0-11.0) K/uL RBC 3.95 L (4.30-5.90) M/uL Hgb 12.6 (12.0-16.0) g/dL Hct 37.9 (36.0-46.0) % MCV 95.9 (80.0-98.0) fL MCH 31.9 (27.0-32.0) pg MCHC 33.2 (31.0-37.0) g/dL RDW Std Deviation 48.1 (28.0-62.0) fl RDW Coeff of [place] 14 (11.0-15.0) % Plt Count 146 L (150-400) K/uL MPV 9.50 (7.40-12.00) fL Neut % (Auto) (48.0-80.0) % Lymph % (Auto) (16.0-40.0) % [place] % (Auto) (0.0-15.0) % Eos % (Auto) (0.0-7.0) % Baso % (Auto) (0.0-1.5) % Neut # (Auto) (1.4-5.7) K/uL Lymph # (Auto) (0.6-2.4) K/uL [place] # (Auto) (0.0-0.8) K/uL Eos # (Auto) (0.0-0.7) K/uL Baso # (Auto) (0.0-0.1) K/uL Nucleated RBC % 0.0 /100WBC Nucleated RBCs # 0 K/uL Sodium 144 (136-145) mmol/L Potassium 3.4 L (3.5-5.1) mmol/L Chloride 107 (98-107) mmol/L Carbon Dioxide 28.3 (21.0-32.0) mmol/L BUN 21 H (7.0-18.0) mg/dL Creatinine 0.9 (0.6-1.0) mg/dL Est Cr Clr Drug Dosing 41.87 mL/min Estimated GFR (MDRD) 59.7 ml/min Glucose 144 H (74-106) mg/dL Calcium 8.3 L (8.5-10.1) mg/dL Total Bilirubin 0.8 (0.2-1.0) mg/dL AST 29 (15-37) IU/L ALT 34 (14-63) IU/L Alkaline Phosphatase 96 (46-116) U/L Troponin I (0.000-0.056) ng/mL Total Protein 6.1 L (6.4-8.2) g/dL Albumin 2.6 L (3.4-5.0) g/dL Globulin 3.5 (2.6-4.0) g/dL Albumin/Globulin Ratio 0.7 L (0.9-1.6) Lipase (73-393) U/L TSH 3rd Generation (0.36-3.74) uIU/mL Urine Color Urine Appearance Urine pH (5.0-8.0) Ur Specific [place] (1.001-1.035) Urine Protein (NEGATIVE) mg/dL Urine Glucose (UA) (NEGATIVE) mg/dL Urine Ketones (NEGATIVE) mg/dL Urine Occult Blood (NEGATIVE) Urine Nitrite (NEGATIVE) Urine Bilirubin (NEGATIVE) Urine Urobilinogen (<2.0) EU/dL Ur Leukocyte Esterase (NEGATIVE) Urine RBC (0-2/HPF) Urine WBC (0-5/HPF) Ur Epithelial Cells (NONE-FEW) Urine Bacteria (NEGATIVE) Urine Mucus (NONE-MOD) Joselito Results Last 24 Hours: Microbiology 03/02/19 16:35 Influenza Type A Antigen Screen - Final Nasopharyngeal Swab NEGATIVE INFLUENZA A VIRUS AG REFERENCE RANGE: NEGATIVE Influenza Type B Antigen Screen - Final NEGATIVE INFLUENZA B VIRUS AG REFERENCE RANGE: NEGATIVE Med Orders - Current: Current Medications Hydrocodone Bitart/Acetaminophen ([place] 325-10 Mg) 1 tab PO Q6H PRN PRN Reason: PAIN Last Admin: 03/03/19 11:38 Dose: 1 tab Piperacillin Sod/Tazobactam (Sod 3.375 gm/ Sodium Chloride) 50 mls @ 100 mls/ hr IV Q6H [facility] Vancomycin HCl 1.25 gm/ Sodium (Chloride) 250 mls @ 166.667 mls/hr IV Q24H [facility] Last Admin: 03/03/19 10:54 Dose: 166.667 mls/hr Losartan Potassium (Cozaar) 100 mg PO DAILY [facility] Last Admin: 03/03/19 08:22 Dose: 100 mg Metoprolol Succinate (Toprol Xl) 50 mg PO BID [facility] Last Admin: 03/03/19 08:21 Dose: 50 mg Ondansetron HCl (Zofran) 4 mg IVPUSH Q4H PRN PRN Reason: Nausea Primidone (Mysoline) 150 mg PO BID [facility] Last Admin: 03/03/19 09:13 Dose: 150 mg Vancomycin HCl (Pharmacy To Dose - Vancomycin) 1 dose .XX ASDIRECTED [facility] Discontinued Medications Piperacillin Sod/Tazobactam (Sod 3.375 gm/ Sodium Chloride) 50 mls @ 100 mls/ hr IV ONETIME ONE Stop: 03/02/19 20:44 Last Admin: 03/02/19 20:40 Dose: 100 mls/hr Sodium Chloride (Normal Saline) 1,000 mls @ 1,000 mls/hr IV .Bolus ONE Stop: 03/02/19 21:13 Last Admin: 03/02/19 20:41 Dose: 1,000 mls/hr Piperacillin Sod/Tazobactam (Sod 3.375 gm/ Sodium Chloride) 50 mls @ 100 mls/ hr IV Q6H [facility] Piperacillin Sod/Tazobactam (Sod 2.25 gm/ Sodium Chloride) 50 mls @ 100 mls/hr IV Q6H [facility] Last Admin: 03/03/19 08:24 Dose: 100 mls/hr Iopamidol (Isovue Multipack-370 (76%)) 100 ml IVPUSH ONETIME ONE Stop: 03/02/19 18:57 Last Admin: 03/02/19 18:57 Dose: 100 ml Potassium Chloride (Klor-Con M20) 40 meq PO ONETIME ONE Stop: 03/02/19 23:00 Last Admin: 03/02/19 23:27 Dose: 40 meq Potassium Chloride (Klor-Con M20) 20 meq PO ONETIME ONE Stop: 03/03/19 08:12 Last Admin: 03/03/19 08:21 Dose: 20 meq - Exam General: Alert, Oriented, Cooperative, No Acute Distress HEENT: EOMI, Mucous Membr. Moist/[place] Lungs: Clear to Auscultation, Normal Respiratory Effort Cardiovascular: Other (refualr rate and rhythm: + systolic ejection murmur in aortic region ) GI/Abdominal Exam: Soft, Non-Tender, No Organomegaly Back Exam: No: CVA Tenderness (L), CVA Tenderness (R) Extremities: Other (right lower extremity: chronic erythematous ) Sepsis Event Note - Evaluation Sepsis Screening Result: No Definite Risk - Focused Exam Vital Signs: Vital Signs Temp Pulse Pulse Resp BP BP Pulse Ox 03/03/19 08:22 142/44 H 03/03/19 08:21 95 142/49 H 03/03/19 07:10 97.2 F 95 16 142/49 H 94 L 03/03/19 04:00 98.1 F 91 17 133/60 93 L Date Exam was Performed: 03/03/19 Time Exam was Performed: 14:52 - Problem List Review Problem List Initiated/Reviewed/Updated: Yes - My Orders Last 24 Hours: My Active Orders 03/03/19 Dinner Heart Healthy Diet [DIET] - Plan Plan:: 83 yo female admitted for generalized weakness likely due to acute cholecystitis Dr Dietz of Surgery consulted: recommended continue abx. Cipro +flagyl at discharge; will advance diet. Will work with PT/OT today Concerns for chronic redness of right lower extremity; has been a chronic issue : will continue Zosyn and add vancomycin today: anticipate discharge tomorrow with follow up with surgery in outpatient setting. Abdominal U?S performed U/S of right lower extremity did not show any clot formation ; +subcutaneous edema. ECHO performed as well.
[2019-03-03] MEDS: Piperacillin/Tazobactam 3.375 GM in Sodium Chloride 0.9% 50 ML IV SCH ×2 (14:53→22:06)
[2019-03-03] MEDS ORDERED: Acetaminophen 500 MG Tab PO PRN (17:27)
[2019-03-04] MEDS: Acetaminophen/HYDROcodone 325-10 MG Tab PO PRN ×4 (03:11→23:40)
[2019-03-04] MEDS: Piperacillin/Tazobactam 3.375 GM in Sodium Chloride 0.9% 50 ML IV SCH ×2 (03:12→09:24)
[2019-03-04 07:06] LABS: CARBON DIOXIDE,CO2 27.7 mmol/L (21.0-32.0); POTASSIUM,K 3.5 mmol/L (3.5-5.1)
[2019-03-04] MEDS: Losartan 50 MG Tab PO SCH (09:22)
[2019-03-04] MEDS: Metoprolol Succinate 50 MG Tab.ER PO SCH (09:23)
[2019-03-04] MEDS: Primidone 50 MG Tab PO SCH ×3 (09:23→23:25)
[2019-03-04] MEDS: metroNIDAZOLE 250 MG Tab PO SCH ×2 (11:53→19:19)
[2019-03-04] MEDS: Ciprofloxacin 500 MG Tab PO SCH ×2 (11:53→21:11)
--- NOTE | 2019-03-04 16:31 | PCM.PN ---
- General Info Date of Service: 03/04/19 Subjective Update: Bedside : no new complaints; no distress, pain and or discomfort; requesting to go home. Functional Status: Reports: Pain Controlled - Review of Systems General: Denies: Fever, Weakness, Fatigue, Chills HEENT: Reports: No Symptoms Pulmonary: Reports: No Symptoms, Cough. Denies: Sputum Cardiovascular: Reports: No Symptoms Gastrointestinal: Reports: No Symptoms Musculoskeletal: Reports: No Symptoms Neurological: Denies: Dizziness, Headache - Patient Data Vitals - Most Recent: Last Vital Signs Temp 99.9 F 03/04/19 15:00 Pulse 81 03/04/19 15:00 Resp 20 03/04/19 15:00 BP 139/61 03/04/19 15:00 Pulse Ox 94 L 03/04/19 15:00 Weight - Most Recent: 197 lb 8 oz I&O - Last 24 Hours: Intake & Output 03/04/19 03/04/19 03/04/19 06:59 14:59 22:59 Intake Total 100 600 Output Total 500 Balance 100 100 Lab Results Last 24 Hours: Laboratory Results - last 24 hr 03/04/19 03/04/19 03/04/19 Range/Units 06:25 06:25 12:16 WBC 14.55 H 14.06 H (4.0-11.0) K/uL RBC 3.98 L 3.38 L (4.30-5.90) M/uL Hgb 12.7 13.0 (12.0-16.0) g/dL Hct 38.4 32.9 L (36.0-46.0) % MCV 96.5 97.3 (80.0-98.0) fL MCH 31.9 38.5 H (27.0-32.0) pg MCHC 33.1 39.5 H (31.0-37.0) g/dL RDW Std Deviation 47.2 48.0 (28.0-62.0) fl RDW Coeff of [place]um 14 14 (11.0-15.0) % Plt Count 154 133 L (150-400) K/uL MPV 9.70 11.10 (7.40-12.00) fL Neut % (Auto) 79.3 82.2 H (48.0-80.0) % Lymph % (Auto) 11.0 L 7.5 L (16.0-40.0) % [place] % (Auto) 9.1 9.2 (0.0-15.0) % Eos % (Auto) 0.4 0.9 (0.0-7.0) % Baso % (Auto) 0.2 0.2 (0.0-1.5) % Neut # (Auto) 11.5 H 11.6 H (1.4-5.7) K/uL Lymph # (Auto) 1.6 1.1 (0.6-2.4) K/uL [place] # (Auto) 1.3 H 1.3 H (0.0-0.8) K/uL Eos # (Auto) 0.1 0.1 (0.0-0.7) K/uL Baso # (Auto) 0.0 0.0 (0.0-0.1) K/uL Nucleated RBC % 0.0 0.0 /100WBC Nucleated RBCs # 0 0 K/uL Sodium 142 (136-145) mmol/L Potassium 3.5 (3.5-5.1) mmol/L Chloride 106 (98-107) mmol/L Carbon Dioxide 27.7 (21.0-32.0) mmol/L BUN 17 (7.0-18.0) mg/dL Creatinine 0.9 (0.6-1.0) mg/dL Est Cr Clr Drug Dosing 41.87 mL/min Estimated GFR (MDRD) 59.7 ml/min Glucose 143 H (74-106) mg/dL Calcium 8.5 (8.5-10.1) mg/dL Total Bilirubin 1.1 H (0.2-1.0) mg/dL AST 37 (15-37) IU/L ALT 46 (14-63) IU/L Alkaline Phosphatase 97 (46-116) U/L Total Protein 6.4 (6.4-8.2) g/dL Albumin 2.4 L (3.4-5.0) g/dL Globulin 4.0 (2.6-4.0) g/dL Albumin/Globulin Ratio 0.6 L (0.9-1.6) Urine Color Urine Appearance Urine pH (5.0-8.0) Ur Specific [place] (1.001-1.035) Urine Protein (NEGATIVE) mg/dL Urine Glucose (UA) (NEGATIVE) mg/dL Urine Ketones (NEGATIVE) mg/dL Urine Occult Blood (NEGATIVE) Urine Nitrite (NEGATIVE) Urine Bilirubin (NEGATIVE) Urine Urobilinogen (<2.0) EU/dL Ur Leukocyte Esterase (NEGATIVE) Urine RBC (0-2/HPF) Urine WBC (0-5/HPF) Ur Epithelial Cells (NONE-FEW) Urine Bacteria (NEGATIVE) Urine Mucus (NONE-MOD) 03/04/19 Range/Units 12:50 WBC (4.0-11.0) K/uL RBC (4.30-5.90) M/uL Hgb (12.0-16.0) g/dL Hct (36.0-46.0) % MCV (80.0-98.0) fL MCH (27.0-32.0) pg MCHC (31.0-37.0) g/dL RDW Std Deviation (28.0-62.0) fl RDW Coeff of [place] (11.0-15.0) % Plt Count (150-400) K/uL MPV (7.40-12.00) fL Neut % (Auto) (48.0-80.0) % Lymph % (Auto) (16.0-40.0) % [place] % (Auto) (0.0-15.0) % Eos % (Auto) (0.0-7.0) % Baso % (Auto) (0.0-1.5) % Neut # (Auto) (1.4-5.7) K/uL Lymph # (Auto) (0.6-2.4) K/uL [place] # (Auto) (0.0-0.8) K/uL Eos # (Auto) (0.0-0.7) K/uL Baso # (Auto) (0.0-0.1) K/uL Nucleated RBC % /100WBC Nucleated RBCs # K/uL Sodium (136-145) mmol/L Potassium (3.5-5.1) mmol/L Chloride (98-107) mmol/L Carbon Dioxide (21.0-32.0) mmol/L BUN (7.0-18.0) mg/dL Creatinine (0.6-1.0) mg/dL Est Cr Clr Drug Dosing mL/min Estimated GFR (MDRD) ml/min Glucose (74-106) mg/dL Calcium (8.5-10.1) mg/dL Total Bilirubin (0.2-1.0) mg/dL AST (15-37) IU/L ALT (14-63) IU/L Alkaline Phosphatase (46-116) U/L Total Protein (6.4-8.2) g/dL Albumin (3.4-5.0) g/dL Globulin (2.6-4.0) g/dL Albumin/Globulin Ratio (0.9-1.6) Urine Color YELLOW Urine Appearance HAZY Urine pH 6.0 (5.0-8.0) Ur Specific [place] 1.025 (1.001-1.035) Urine Protein 30 H (NEGATIVE) mg/dL Urine Glucose (UA) NEGATIVE (NEGATIVE) mg/dL Urine Ketones NEGATIVE (NEGATIVE) mg/dL Urine Occult Blood SMALL H (NEGATIVE) Urine Nitrite NEGATIVE (NEGATIVE) Urine Bilirubin NEGATIVE (NEGATIVE) Urine Urobilinogen 0.2 (<2.0) EU/dL Ur Leukocyte Esterase NEGATIVE (NEGATIVE) Urine RBC 0-2 (0-2/HPF) Urine WBC 2-4 (0-5/HPF) Ur Epithelial Cells FEW (NONE-FEW) Urine Bacteria FEW (NEGATIVE) Urine Mucus LIGHT (NONE-MOD) Med Orders - Current: Current Medications Acetaminophen (Tylenol Extra Strength) 500 mg PO Q4H PRN PRN Reason: Pain Last Admin: 03/03/19 19:44 Dose: 500 mg Hydrocodone Bitart/Acetaminophen ([place] 325-10 Mg) 1 tab PO Q6H PRN PRN Reason: PAIN Last Admin: 03/04/19 15:28 Dose: 1 tab Ciprofloxacin (Ciprofloxacin Hcl) 500 mg PO BID [facility] Last Admin: 03/04/19 11:53 Dose: 500 mg Losartan Potassium (Cozaar) 100 mg PO DAILY [facility] Last Admin: 03/04/19 09:22 Dose: 100 mg Metoprolol Tartrate (Lopressor) 50 mg PO BID [facility] Metronidazole (Metronidazole) 250 mg PO Q8H [facility] Last Admin: 03/04/19 11:53 Dose: 250 mg Ondansetron HCl (Zofran) 4 mg IVPUSH Q4H PRN PRN Reason: Nausea Primidone (Mysoline) 150 mg PO QID [facility] Discontinued Medications Piperacillin Sod/Tazobactam (Sod 3.375 gm/ Sodium Chloride) 50 mls @ 100 mls/ hr IV ONETIME ONE Stop: 03/02/19 20:44 Last Admin: 03/02/19 20:40 Dose: 100 mls/hr Sodium Chloride (Normal Saline) 1,000 mls @ 1,000 mls/hr IV .Bolus ONE Stop: 03/02/19 21:13 Last Admin: 03/02/19 20:41 Dose: 1,000 mls/hr Piperacillin Sod/Tazobactam (Sod 3.375 gm/ Sodium Chloride) 50 mls @ 100 mls/ hr IV Q6H [facility] Piperacillin Sod/Tazobactam (Sod 2.25 gm/ Sodium Chloride) 50 mls @ 100 mls/hr IV Q6H [facility] Last Admin: 03/03/19 08:24 Dose: 100 mls/hr Piperacillin Sod/Tazobactam (Sod 3.375 gm/ Sodium Chloride) 50 mls @ 100 mls/ hr IV Q6H [facility] Last Admin: 03/04/19 09:24 Dose: 100 mls/hr Vancomycin HCl 1.25 gm/ Sodium (Chloride) 250 mls @ 166.667 mls/hr IV Q24H [facility] Last Admin: 03/04/19 11:05 Dose: Not Given Iopamidol (Isovue Multipack-370 (76%)) 100 ml IVPUSH ONETIME ONE Stop: 03/02/19 18:57 Last Admin: 03/02/19 18:57 Dose: 100 ml Metoprolol Succinate (Toprol Xl) 50 mg PO BID [facility] Last Admin: 03/04/19 09:23 Dose: 50 mg Potassium Chloride (Klor-Con M20) 40 meq PO ONETIME ONE Stop: 03/02/19 23:00 Last Admin: 03/02/19 23:27 Dose: 40 meq Potassium Chloride (Klor-Con M20) 20 meq PO ONETIME ONE Stop: 03/03/19 08:12 Last Admin: 03/03/19 08:21 Dose: 20 meq Primidone (Mysoline) 150 mg PO BID [facility] Last Admin: 03/04/19 09:23 Dose: 150 mg Vancomycin HCl (Pharmacy To Dose - Vancomycin) 1 dose .XX ASDIRECTED [facility] - Exam General: Alert, Oriented HEENT: EOMI, Mucous Membr. Moist/[place] Lungs: Clear to Auscultation, Normal Respiratory Effort Cardiovascular: Regular Rate, Regular Rhythm GI/Abdominal Exam: Soft, Non-Tender, No Organomegaly Extremities: Other (RLE redness stable since discharge ) Neurological: No New Focal Deficit Psy/Mental Status: Alert, Normal Mood Sepsis Event Note - Evaluation Sepsis Screening Result: No Definite Risk - Focused Exam Vital Signs: Vital Signs Temp Pulse Pulse Resp BP BP Pulse Ox 03/04/19 15:00 99.9 F 81 20 139/61 94 L 03/04/19 11:00 98.7 F 80 16 143/65 H 95 03/04/19 09:23 88 145/67 H 03/04/19 09:22 145/67 H 03/04/19 07:00 98.8 F 88 18 145/67 H 93 L Date Exam was Performed: 03/04/19 Time Exam was Performed: 16:27 - Problem List Review Problem List Initiated/Reviewed/Updated: Yes - My Orders Last 24 Hours: My Active Orders 03/03/19 17:27 Acetaminophen [Tylenol Extra Strength] 500 mg PO Q4H PRN 03/03/19 Dinner Heart Healthy Diet [DIET] 03/04/19 11:15 Ciprofloxacin [Ciprofloxacin HCl] 500 mg PO BID [facility] 250 mg PO Q8H - Plan Plan:: 83 yo female admitted for generalized weakness likely due to acute cholecystitis Dr Dietz of Surgery consulted: recommended continue abx. Cipro +flagyl at discharge; Leukocytosis still elevated on repeat CBC; started pt. on oral flagyl and cipro; will reassess in AM for downtrending WBC ; potential discharge Will work with PT/OT today : assessed and recommendation for outpatient PT work Concerns for chronic redness of right lower extremity; has been a chronic issue Abdominal U/S performed U/S of right lower extremity did not show any clot formation ; +subcutaneous edema. ECHO performed as well.
[2019-03-04] MEDS: Metoprolol Tartrate 50 MG Tab PO SCH (21:10)
[2019-03-05] MEDS: metroNIDAZOLE 250 MG Tab PO SCH ×2 (03:41→11:09)
[2019-03-05] MEDS: Primidone 50 MG Tab PO SCH ×2 (05:49→13:19)
[2019-03-05 07:00] LABS: CARBON DIOXIDE,CO2 26.5 mmol/L (21.0-32.0); POTASSIUM,K 3.3 mmol/L (3.5-5.1)
[2019-03-05] MEDS: Ciprofloxacin 500 MG Tab PO SCH (08:00)
[2019-03-05] MEDS: Metoprolol Tartrate 50 MG Tab PO SCH (08:00)
[2019-03-05] MEDS: Acetaminophen/HYDROcodone 325-10 MG Tab PO PRN (08:01)
[2019-03-05] MEDS: Losartan 50 MG Tab PO SCH (08:01)
[2019-03-05] MEDS ORDERED: Potassium Chloride 20 MEQ Tab.ER PO ONE (10:07)
--- NOTE | 2019-03-05 11:50 | PCM.DCSUM1 ---
Discharge Summary - Discharge Data Discharge Disposition: Home, Self-Care 01 Condition: Stable - Referral to Home Health Primary Care Physician: Tyrone White MD - Discharge Diagnosis/Problem(s) (1) Acute cholecystitis SNOMED Code(s): 02668970 ICD Code: K81.0 - ACUTE CHOLECYSTITIS Status: Acute Current Visit: Yes (2) Cholelithiasis and cholecystitis without obstruction SNOMED Code(s): 65369411 ICD Code: K80.10 - CALCULUS OF GALLBLADDER W CHRONIC CHOLECYST W/O OBSTRUCTION Status: Acute Current Visit: Yes (3) Weakness SNOMED Code(s): 97919308 ICD Code: R53.1 - WEAKNESS Status: Acute Current Visit: Yes - Patient Summary/Data Consults: Consultations 03/02/19 23:00 PT Evaluation and Treatment [CONS] Routine - Patient Instructions Diet: Heart Healthy Diet Activity: As Tolerated Driving: Do Not Drive Showering/Bathing: May Shower Notify Provider of: Fever, Increased Pain, Swelling and Redness, Nausea and/or Vomiting - Discharge Plan *PRESCRIPTION DRUG MONITORING PROGRAM REVIEWED*: No *COPY OF PRESCRIPTION DRUG MONITORING REPORT IN PATIENT PENNY: No Prescriptions/Med Rec: Ciprofloxacin [Ciprofloxacin HCl] 500 mg PO BID #14 tablet metroNIDAZOLE 250 mg PO Q8H #21 tablet Home Medications: Home Meds Calcium Carb, Citrate/Vit D3 [Calcium + D3 ER Tablet] 1 tab PO BID 03/02/19 [ History] Celecoxib [CeleBREX] 200 mg PO QPM 03/02/19 [History] Furosemide [Lasix] 60 mg PO DAILY 03/02/19 [History] Glucosam/Chond/Collagen/Hyalur [Glucosamine Chondroitin] 1 tab PO BID 03/02/19 [ History] Hydrocodone/Acetaminophen [[place] 10-325 Tablet] 1 tab PO BID PRN 03/02/19 [ History] Losartan [Cozaar] 100 mg PO DAILY 03/02/19 [History] Multivitamin [Multi-Vitamin Daily] 1 tab PO BID 03/02/19 [History] [place]-3/DHA/Epa/Fish Oil [[place] 3 500 Softgel] 1,000 mg PO BID 03/02/19 [History ] Primidone [Mysoline] 150 mg PO QID 03/02/19 [History] Metoprolol Tartrate 50 mg PO BID 03/04/19 [History] Ciprofloxacin [Ciprofloxacin HCl] 500 mg PO BID #14 tablet 03/05/19 [Rx] metroNIDAZOLE 250 mg PO Q8H #21 tablet 03/05/19 [Rx] Oxygen Therapy Mode: Room Air Referrals: [facility] [Outside] Mala Dietz MD [Physician] - Tyrone White MD [Primary Care Provider] - 03/10/19 1:30 pm - Patient Data Vitals - Most Recent: Last Vital Signs Temp 37.1 C 03/05/19 07:00 Pulse 75 03/05/19 08:00 Resp 18 03/05/19 07:00 BP 130/55 L 03/05/19 08:01 Pulse Ox 93 L 03/05/19 07:00 Weight - Most Recent: 89.584 kg I&O - Last 24 hours: Intake & Output 03/04/19 03/05/19 03/05/19 22:59 06:59 14:59 Intake Total 600 500 Output Total 500 500 Balance 100 0 Lab Results - Last 24 hrs: Laboratory Results - last 24 hr 03/04/19 03/04/19 03/05/19 Range/Units 12:16 12:50 06:30 WBC 14.06 H 10.30 (4.0-11.0) K/uL RBC 3.38 L 3.89 L (4.30-5.90) M/uL Hgb 13.0 12.2 (12.0-16.0) g/dL Hct 32.9 L 37.4 (36.0-46.0) % MCV 97.3 96.1 (80.0-98.0) fL MCH 38.5 H 31.4 (27.0-32.0) pg MCHC 39.5 H 32.6 (31.0-37.0) g/dL RDW Std Deviation 48.0 48.0 (28.0-62.0) fl RDW Coeff of Nahum 14 14 (11.0-15.0) % Plt Count 133 L 153 (150-400) K/uL MPV 11.10 9.40 (7.40-12.00) fL Neut % (Auto) 82.2 H 73.8 (48.0-80.0) % Lymph % (Auto) 7.5 L 11.7 L (16.0-40.0) % [place] % (Auto) 9.2 10.7 (0.0-15.0) % Eos % (Auto) 0.9 3.5 (0.0-7.0) % Baso % (Auto) 0.2 0.3 (0.0-1.5) % Neut # (Auto) 11.6 H 7.6 H (1.4-5.7) K/uL Lymph # (Auto) 1.1 1.2 (0.6-2.4) K/uL [place] # (Auto) 1.3 H 1.1 H (0.0-0.8) K/uL Eos # (Auto) 0.1 0.4 (0.0-0.7) K/uL Baso # (Auto) 0.0 0.0 (0.0-0.1) K/uL Nucleated RBC % 0.0 0.0 /100WBC Nucleated RBCs # 0 0 K/uL Sodium (136-145) mmol/L Potassium (3.5-5.1) mmol/L Chloride (98-107) mmol/L Carbon Dioxide (21.0-32.0) mmol/L BUN (7.0-18.0) mg/dL Creatinine (0.6-1.0) mg/dL Est Cr Clr Drug Dosing mL/min Estimated GFR (MDRD) ml/min Glucose (74-106) mg/dL Calcium (8.5-10.1) mg/dL Total Bilirubin (0.2-1.0) mg/dL AST (15-37) IU/L ALT (14-63) IU/L Alkaline Phosphatase (46-116) U/L Total Protein (6.4-8.2) g/dL Albumin (3.4-5.0) g/dL Globulin (2.6-4.0) g/dL Albumin/Globulin Ratio (0.9-1.6) Urine Color YELLOW Urine Appearance HAZY Urine pH 6.0 (5.0-8.0) Ur Specific [place] 1.025 (1.001-1.035) Urine Protein 30 H (NEGATIVE) mg/dL Urine Glucose (UA) NEGATIVE (NEGATIVE) mg/dL Urine Ketones NEGATIVE (NEGATIVE) mg/dL Urine Occult Blood SMALL H (NEGATIVE) Urine Nitrite NEGATIVE (NEGATIVE) Urine Bilirubin NEGATIVE (NEGATIVE) Urine Urobilinogen 0.2 (<2.0) EU/dL Ur Leukocyte Esterase NEGATIVE (NEGATIVE) Urine RBC 0-2 (0-2/HPF) Urine WBC 2-4 (0-5/HPF) Ur Epithelial Cells FEW (NONE-FEW) Urine Bacteria FEW (NEGATIVE) Urine Mucus LIGHT (NONE-MOD) 03/05/19 Range/Units 06:30 WBC (4.0-11.0) K/uL RBC (4.30-5.90) M/uL Hgb (12.0-16.0) g/dL Hct (36.0-46.0) % MCV (80.0-98.0) fL MCH (27.0-32.0) pg MCHC (31.0-37.0) g/dL RDW Std Deviation (28.0-62.0) fl RDW Coeff of Nahum (11.0-15.0) % Plt Count (150-400) K/uL MPV (7.40-12.00) fL Neut % (Auto) (48.0-80.0) % Lymph % (Auto) (16.0-40.0) % [place] % (Auto) (0.0-15.0) % Eos % (Auto) (0.0-7.0) % Baso % (Auto) (0.0-1.5) % Neut # (Auto) (1.4-5.7) K/uL Lymph # (Auto) (0.6-2.4) K/uL [place] # (Auto) (0.0-0.8) K/uL Eos # (Auto) (0.0-0.7) K/uL Baso # (Auto) (0.0-0.1) K/uL Nucleated RBC % /100WBC Nucleated RBCs # K/uL Sodium 141 (136-145) mmol/L Potassium 3.3 L (3.5-5.1) mmol/L Chloride 105 (98-107) mmol/L Carbon Dioxide 26.5 (21.0-32.0) mmol/L BUN 20 H (7.0-18.0) mg/dL Creatinine 1.0 (0.6-1.0) mg/dL Est Cr Clr Drug Dosing 37.68 mL/min Estimated GFR (MDRD) 52.8 ml/min Glucose 123 H (74-106) mg/dL Calcium 8.3 L (8.5-10.1) mg/dL Total Bilirubin 0.7 (0.2-1.0) mg/dL AST 31 (15-37) IU/L ALT 52 (14-63) IU/L Alkaline Phosphatase 99 (46-116) U/L Total Protein 6.2 L (6.4-8.2) g/dL Albumin 2.2 L (3.4-5.0) g/dL Globulin 4.0 (2.6-4.0) g/dL Albumin/Globulin Ratio 0.6 L (0.9-1.6) Urine Color Urine Appearance Urine pH (5.0-8.0) Ur Specific [place] (1.001-1.035) Urine Protein (NEGATIVE) mg/dL Urine Glucose (UA) (NEGATIVE) mg/dL Urine Ketones (NEGATIVE) mg/dL Urine Occult Blood (NEGATIVE) Urine Nitrite (NEGATIVE) Urine Bilirubin (NEGATIVE) Urine Urobilinogen (<2.0) EU/dL Ur Leukocyte Esterase (NEGATIVE) Urine RBC (0-2/HPF) Urine WBC (0-5/HPF) Ur Epithelial Cells (NONE-FEW) Urine Bacteria (NEGATIVE) Urine Mucus (NONE-MOD) Med Orders - Current: Current Medications Acetaminophen (Tylenol Extra Strength) 500 mg PO Q4H PRN PRN Reason: Pain Last Admin: 03/03/19 19:44 Dose: 500 mg Hydrocodone Bitart/Acetaminophen ([place] 325-10 Mg) 1 tab PO Q6H PRN PRN Reason: PAIN Last Admin: 03/05/19 08:01 Dose: 1 tab Ciprofloxacin (Ciprofloxacin Hcl) 500 mg PO BID [facility] Last Admin: 03/05/19 08:00 Dose: 500 mg Losartan Potassium (Cozaar) 100 mg PO DAILY [facility] Last Admin: 03/05/19 08:01 Dose: 100 mg Metoprolol Tartrate (Lopressor) 50 mg PO BID [facility] Last Admin: 03/05/19 08:00 Dose: 50 mg Metronidazole (Metronidazole) 250 mg PO Q8H [facility] Last Admin: 03/05/19 11:09 Dose: 250 mg Ondansetron HCl (Zofran) 4 mg IVPUSH Q4H PRN PRN Reason: Nausea Primidone (Mysoline) 150 mg PO QID [facility] Last Admin: 03/05/19 05:49 Dose: 150 mg Discontinued Medications Piperacillin Sod/Tazobactam (Sod 3.375 gm/ Sodium Chloride) 50 mls @ 100 mls/ hr IV ONETIME ONE Stop: 03/02/19 20:44 Last Admin: 03/02/19 20:40 Dose: 100 mls/hr Sodium Chloride (Normal Saline) 1,000 mls @ 1,000 mls/hr IV .Bolus ONE Stop: 03/02/19 21:13 Last Admin: 03/02/19 20:41 Dose: 1,000 mls/hr Piperacillin Sod/Tazobactam (Sod 3.375 gm/ Sodium Chloride) 50 mls @ 100 mls/ hr IV Q6H [facility] Piperacillin Sod/Tazobactam (Sod 2.25 gm/ Sodium Chloride) 50 mls @ 100 mls/hr IV Q6H [facility] Last Admin: 03/03/19 08:24 Dose: 100 mls/hr Piperacillin Sod/Tazobactam (Sod 3.375 gm/ Sodium Chloride) 50 mls @ 100 mls/ hr IV Q6H [facility] Last Admin: 03/04/19 09:24 Dose: 100 mls/hr Vancomycin HCl 1.25 gm/ Sodium (Chloride) 250 mls @ 166.667 mls/hr IV Q24H [facility] Last Admin: 03/04/19 11:05 Dose: Not Given Iopamidol (Isovue Multipack-370 (76%)) 100 ml IVPUSH ONETIME ONE Stop: 03/02/19 18:57 Last Admin: 03/02/19 18:57 Dose: 100 ml Metoprolol Succinate (Toprol Xl) 50 mg PO BID [facility] Last Admin: 03/04/19 09:23 Dose: 50 mg Potassium Chloride (Klor-Con M20) 40 meq PO ONETIME ONE Stop: 03/02/19 23:00 Last Admin: 03/02/19 23:27 Dose: 40 meq Potassium Chloride (Klor-Con M20) 20 meq PO ONETIME ONE Stop: 03/03/19 08:12 Last Admin: 03/03/19 08:21 Dose: 20 meq Potassium Chloride (Klor-Con M20) 40 meq PO ONETIME ONE Stop: 03/05/19 10:08 Last Admin: 03/05/19 11:09 Dose: 40 meq Primidone (Mysoline) 150 mg PO BID [facility] Last Admin: 03/04/19 09:23 Dose: 150 mg Vancomycin HCl (Pharmacy To Dose - Vancomycin) 1 dose .XX ASDIRECTED [facility]
== END 2019-03-05 13:28 | disposition home or self-care (01) ==
LOC: MW.ED 15:31 → MW.MS 20:18
PROVIDERS: ADMIT Internal Medicine; ATTEND Internal Medicine
DX: K80.00 Calculus of gallbladder with acute cholecystitis without obstruction (principal); I10 Essential (primary) hypertension; E78.00 Pure hypercholesterolemia, unspecified; R91.1 Solitary pulmonary nodule; F03.90 Unspecified dementia, unspecified severity, without behavioral disturbance, psychotic disturbance, mood disturbance, and anxiety; G89.29 Other chronic pain; M54.9 Dorsalgia, unspecified; M19.90 Unspecified osteoarthritis, unspecified site; E66.9 Obesity, unspecified; Z68.32 Body mass index [BMI] 32.0-32.9, adult; Z88.5 Allergy status to narcotic agent; Z88.8 Allergy status to other drugs, medicaments and biological substances; Z79.899 Other long term (current) drug therapy
CPT/HCPCS: 36415; 70450; 71045; 71260; 76705; 80053; 81001; 83690; 84443; 84484; 85025; 85027; 87804; 93005; 93971; 97162; 97530; 99285; A9270; J2543; J3370; J7030; J7050; Q9967; 99284

== ENCOUNTER 2020-03-13 14:13 | Inpatient (IN) | payer MEDICARE, BC ==
--- NOTE | 2020-03-13 14:41 | EDM.PDOC ---
ED HPI GENERAL MEDICAL PROBLEM - General Chief Complaint: Neuro Symptoms/Deficits Stated Complaint: STROKE Time Seen by Provider: 03/13/20 14:16 Source of Information: Reports: Patient History Limitations: Reports: No Limitations - History of Present Illness INITIAL COMMENTS - FREE TEXT/NARRATIVE: Patient is an 84-year-old female who was sent in for change in speech and difficulty ambulating. Patient normally ambulates on her own. At the skilled nursing called the patient's daughter and expressed her concern and she thought the patient has some slurred speech. She also said that when the patient was trying to go to the bathroom it took a few people to pick the patient up to walk. She then called the daughter back in brought in for evaluation. We spoke to the daughter in the hallway and states she spoke to the patient and did not feel her speech was slurred. The patient on exam is answering questions clearly understand. Per daughter patient had a little bit of a cough and not feeling as well. We had a similar conversation with the daughter and she is shortness of the patient is DNR/DNI and would not want any invasive treatment. - Related Data Allergies Allergy/AdvReac Type Severity Reaction Status Date / Time morphine Allergy Cannot Verified 03/13/20 15:57 Remember pregabalin [From Lyrica] Allergy Cannot Verified 03/13/20 15:57 Remember Home Meds: Home Meds Calcium Carb, Citrate/Vit D3 [Calcium + D3 ER Tablet] 1 tab PO BID 03/02/19 [History] Celecoxib [CeleBREX] 200 mg PO QPM 03/02/19 [History] Furosemide [Lasix] 60 mg PO DAILY 03/02/19 [History] Glucosam/Chond/Collagen/Hyalur [Glucosamine Chondroitin] 1 tab PO BID 03/02/19 [History] Hydrocodone/Acetaminophen [[place] 10-325 Tablet] 1 tab PO BID PRN 03/02/19 [History] Losartan [Cozaar] 100 mg PO DAILY 03/02/19 [History] Multivitamin [Multi-Vitamin Daily] 1 tab PO BID 03/02/19 [History] [place]-3/DHA/Epa/Fish Oil [[place] 3 500 Softgel] 1,000 mg PO BID 03/02/19 [History] Primidone [Mysoline] 150 mg PO QID 03/02/19 [History] Metoprolol Tartrate 50 mg PO BID 03/04/19 [History] Ciprofloxacin [Ciprofloxacin HCl] 500 mg PO BID #14 tablet 03/05/19 [Rx] metroNIDAZOLE 250 mg PO Q8H #21 tablet 03/05/19 [Rx] Past Medical History HEENT History: Reports: Glaucoma, Sinusitis Cardiovascular History: Reports: High Cholesterol, Hypertension Gastrointestinal History: Reports: Chronic Constipation Genitourinary History: Reports: Urinary Incontinence [employer] History: Reports: Musculoskeletal History: Reports: Arthritis, Back Pain, Chronic Neurological History: Reports: Other (See Below) Other Neuro History: Tremors Psychiatric History: Reports: Dementia Endocrine/Metabolic History: Reports: Obesity/BMI 30+ - Infectious Disease History Infectious Disease History: Reports: Chicken Pox, Measles - Past Surgical History HEENT Surgical History: Reports: None Cardiovascular Surgical History: Reports: None Respiratory Surgical History: Reports: None GI Surgical History: Reports: None Female Surgical History: Reports: Kidney stone extraction Endocrine Surgical History: Reports: None Musculoskeletal Surgical History: Reports: Hip Replacement Other Musculoskeletal Surgeries/Procedures:: bilateral hip replacement Dermatological Surgical History: Reports: None Social & Family History - Family History Family Medical History: No Pertinent Family History Cardiac: Reports: MA - Caffeine Use Caffeine Use: Reports: Coffee ED ROS GENERAL - Review of Systems Review Of Systems: Comprehensive ROS is negative, except as noted in HPI. ED EXAM, NEURO - Physical Exam Exam: See Below Exam Limited By: No Limitations General Appearance: Alert, WD/WN, No Apparent Distress Eye Exam: Bilateral Eye: EOMI, PERRL Head Exam: Atraumatic, Normocephalic Neck: Supple, Non-Tender Respiratory/Chest: No Respiratory Distress, Lungs Clear, Normal Breath Sounds Cardiovascular: Regular Rate, Rhythm GI/Abdominal: Normal Bowel Sounds, Soft, Non-Tender Neurological: Alert, Normal Mood/Affect, Normal Dorsiflexion, CN II-XII Intact, No Motor/Sensory Deficits, Oriented x 3 Extremities: Normal Range of Motion Course - Vital Signs Last Recorded V/S: Last Vital Signs Temp 98 F 03/13/20 14:15 Pulse 103 H 03/13/20 14:15 Resp 18 03/13/20 14:15 BP 151/72 H 03/13/20 14:15 Pulse Ox 92 L 03/13/20 14:15 - Orders/Labs/Meds Orders: Active Orders 24 hr Category Date Time Status Patient Status [ADT] Routine ADT 03/13/20 17:42 Ordered Labs: Laboratory Tests 03/13/20 03/13/20 03/13/20 Range/Units 15:56 16:00 16:09 WBC 15.42 H (4.0-11.0) K/uL RBC 4.56 (4.30-5.90) M/uL Hgb 14.5 (12.0-16.0) g/dL Hct 43.7 (36.0-46.0) % MCV 95.8 (80.0-98.0) fL MCH 31.8 (27.0-32.0) pg MCHC 33.2 (31.0-37.0) g/dL RDW Std Deviation 48.4 (28.0-62.0) fl RDW Coeff of Nahum 14 (11.0-15.0) % Plt Count 135 L (150-400) K/uL MPV 9.30 (7.40-12.00) fL Neut % (Auto) 87.9 H (48.0-80.0) % Lymph % (Auto) 4.5 L (16.0-40.0) % [place] % (Auto) 6.6 (0.0-15.0) % Eos % (Auto) 0.8 (0.0-7.0) % Baso % (Auto) 0.2 (0.0-1.5) % Neut # (Auto) 13.5 H (1.4-5.7) K/uL Lymph # (Auto) 0.7 (0.6-2.4) K/uL [place] # (Auto) 1.0 H (0.0-0.8) K/uL Eos # (Auto) 0.1 (0.0-0.7) K/uL Baso # (Auto) 0.0 (0.0-0.1) K/uL Nucleated RBC % 0.0 /100WBC Nucleated RBCs # 0 K/uL INR APTT (18.6-31.3) SEC Sodium (136-145) mmol/L Potassium (3.5-5.1) mmol/L Chloride (98-107) mmol/L Carbon Dioxide (21.0-32.0) mmol/L BUN (7.0-18.0) mg/dL Creatinine (0.6-1.0) mg/dL Est Cr Clr Drug Dosing mL/min Estimated GFR (MDRD) ml/min Glucose (74-106) mg/dL Calcium (8.5-10.1) mg/dL Phosphorus (2.6-4.7) mg/dL Magnesium (1.8-2.4) mg/dL Total Bilirubin (0.2-1.0) mg/dL AST (15-37) IU/L ALT (14-63) IU/L Alkaline Phosphatase (46-116) U/L Total Protein (6.4-8.2) g/dL Albumin (3.4-5.0) g/dL Globulin (2.6-4.0) g/dL Albumin/Globulin Ratio (0.9-1.6) Lipase (73-393) U/L Urine Opiates Screen NEGATIVE (NEGATIVE) Ur Oxycodone Screen NEGATIVE (NEGATIVE) Urine Methadone Screen NEGATIVE (NEGATIVE) Ur Barbiturates Screen POSITIVE (NEGATIVE) Ur Phencyclidine Scrn NEGATIVE (NEGATIVE) Ur Amphetamine Screen NEGATIVE (NEGATIVE) U Methamphetamines Scrn NEGATIVE (NEGATIVE) U Benzodiazepines Scrn NEGATIVE (NEGATIVE) U Cocaine Metab Screen NEGATIVE (NEGATIVE) U Marijuana (THC) Screen NEGATIVE (NEGATIVE) Ethyl Alcohol mg/dL Influenza Type A RNA NEGATIVE (NEGATIVE) Influenza Type B RNA NEGATIVE (NEGATIVE) SARS-CoV-2 RNA (JOCELYN) NEGATIVE (NEGATIVE) 03/13/20 03/13/20 Range/Units 16:09 16:09 WBC (4.0-11.0) K/uL RBC (4.30-5.90) M/uL Hgb (12.0-16.0) g/dL Hct (36.0-46.0) % MCV (80.0-98.0) fL MCH (27.0-32.0) pg MCHC (31.0-37.0) g/dL RDW Std Deviation (28.0-62.0) fl RDW Coeff of [place]um (11.0-15.0) % Plt Count (150-400) K/uL MPV (7.40-12.00) fL Neut % (Auto) (48.0-80.0) % Lymph % (Auto) (16.0-40.0) % [place] % (Auto) (0.0-15.0) % Eos % (Auto) (0.0-7.0) % Baso % (Auto) (0.0-1.5) % Neut # (Auto) (1.4-5.7) K/uL Lymph # (Auto) (0.6-2.4) K/uL [place] # (Auto) (0.0-0.8) K/uL Eos # (Auto) (0.0-0.7) K/uL Baso # (Auto) (0.0-0.1) K/uL Nucleated RBC % /100WBC Nucleated RBCs # K/uL INR 1.10 APTT 23.2 (18.6-31.3) SEC Sodium 142 (136-145) mmol/L Potassium 3.5 (3.5-5.1) mmol/L Chloride 102 (98-107) mmol/L Carbon Dioxide 27.3 (21.0-32.0) mmol/L BUN 24 H (7.0-18.0) mg/dL Creatinine 1.3 H (0.6-1.0) mg/dL Est Cr Clr Drug Dosing 22.73 mL/min Estimated GFR (MDRD) 38.9 ml/min Glucose 180 H (74-106) mg/dL Calcium 9.3 (8.5-10.1) mg/dL Phosphorus 2.9 (2.6-4.7) mg/dL Magnesium 1.7 L (1.8-2.4) mg/dL Total Bilirubin 0.9 (0.2-1.0) mg/dL AST 36 (15-37) IU/L ALT 33 (14-63) IU/L Alkaline Phosphatase 125 H (46-116) U/L Total Protein 7.1 (6.4-8.2) g/dL Albumin 3.1 L (3.4-5.0) g/dL Globulin 4.0 (2.6-4.0) g/dL Albumin/Globulin Ratio 0.8 L (0.9-1.6) Lipase 70 L (73-393) U/L Urine Opiates Screen (NEGATIVE) Ur Oxycodone Screen (NEGATIVE) Urine Methadone Screen (NEGATIVE) Ur Barbiturates Screen (NEGATIVE) Ur Phencyclidine Scrn (NEGATIVE) Ur Amphetamine Screen (NEGATIVE) U Methamphetamines Scrn (NEGATIVE) U Benzodiazepines Scrn (NEGATIVE) U Cocaine Metab Screen (NEGATIVE) U Marijuana (THC) Screen (NEGATIVE) Ethyl Alcohol 5 mg/dL Influenza Type A RNA (NEGATIVE) Influenza Type B RNA (NEGATIVE) SARS-CoV-2 RNA (JOCELYN) (NEGATIVE) Meds: Medications Discontinued Medications Generic Name Dose Route Start Last Admin Trade Name Kin PRN Reason Stop Dose Admin Iopamidol 100 ml 03/13/20 16:12 03/13/20 16:12 Isovue Multipack-370 (76%) IVPUSH 03/13/20 16:13 100 ml ONETIME STA Administration - Re-Assessments/Exams Free Text/Narrative Re-Assessment/Exam: 03/13/20 17:43 He called the daughter on the phone and daughter spoke to patient after the CAT scan she agreed that the patient speech sounds at baseline she uses a walker at baseline. Patient was able to go to the bathroom with assistance and ambulate at her baseline. Patient will be admitted for TIA work-up. Departure - Departure Time of Disposition: 17:44 Disposition: Admitted As Inpatient 65 Condition: Good Clinical Impression: TIA (transient ischemic attack) - Discharge Information Referrals: Tyrone White MD [Primary Care Provider] - Forms: ED Department Discharge Critical Care Note - Critical Care Note Total Time (mins): 40 Comments: Critical Care Procedure Note Authorized and Performed by: Dr. Lyn Total critical care time: Approximately Due to a high probability of clinically significant, life threatening deterioration, the patient required my highest level of preparedness to intervene emergently and I personally spent this critical care time directly and personally managing the patient. This critical care time included obtaining a history; examining the patient; pulse oximetry; ordering and review of studies; arranging urgent treatment with development of a management plan; evaluation of patient's response to treatment; frequent reassessment; and, discussions with other providers. This critical care time was performed to assess and manage the high probability of imminent, life-threatening deterioration that could result in multi-organ failure. It was exclusive of separately billable procedures and treating other patients and teaching time. Sepsis Event Note (ED) - Focused Exam Vital Signs: Vital Signs Temp Pulse Resp BP Pulse Ox 03/13/20 14:15 98 F 103 H 18 151/72 H 92 L - My Orders Last 24 Hours: My Active Orders 03/13/20 17:42 Patient Status [ADT] Routine - Assessment/Plan Last 24 Hours: My Active Orders 03/13/20 17:42 Patient Status [ADT] Routine Assessment:: Is 84-year-old female who was sent in for possible stroke. Patient seems to be returned to baseline she has for strength range of motion to her lower extremities. At the speaking to daughter and televisit patient is DNR/DNI would not want reverse that would not want any invasive treatment. She also reported patient has some bleeding behind her eye that she is currently seeing outpatient doctor for. Due to patient symptoms speech improving we deferred it did not give TPA at this time. Patient was sent for CTA head and neck and we will continue to monitor.
--- NOTE | 2020-03-13 14:45 | CT ---
INDICATION: Clinical signs and symptoms suggesting an acute stroke COMPARISON: March 02, 2019 TECHNIQUE: CT examination of the head was performed as axial sections without intravenous contrast. Images were obtained from the vertex of the skull through the skull base. Please note that all CT scans at this facility use dose modulation, iterative reconstruction, and/or weight-based dosing when appropriate to reduce radiation dose to as low as reasonably achievable. FINDINGS: The brain shows no sign of mass lesion, mass effect, hemorrhage, or edema. There are involutional changes. There is moderate cortical atrophy and there is moderate to severe white matter disease. There is no hydrocephalus. Nonacute subcortical infarcts. No visible acute finding by CT. No hemorrhage. The visualized portions of the orbits are normal in appearance. The osseous structures are normal in appearance with no sign of abnormality in the skull base or calvarium. IMPRESSION: Involutional changes consisting of atrophy and white matter disease. This includes cerebellar atrophy. Nonacute subcortical infarcts. No visible acute infarct by this modality and no evidence of hemorrhage Please note that all CT scans at this facility use dose modulation, iterative reconstruction, and/or weight-based dosing when appropriate to reduce radiation dose to as low as reasonably achievable. Dictated by Daniel Bruno MD @ Mar 13 2020 2:42PM Signed by Dr. Daniel Bruno @ Mar 13 2020 2:45PM
--- NOTE | 2020-03-13 16:10 | PCM.SN.2 ---
- Free Text/Narrative Note: Anesthesia time [id number] for difficult IV start. Pt cooperative and conversant. US used, chlorhexidine to prep. Attempt #1 in L AC (18g) with flash but wouldn't thread. Attempt #2 (18g) successful in R AC. Easy to flush and draw. Tegaderm applied, tape to secure. Immediately after leaving the room was called back. IV had stopped working when contrast infusion was attempted. Chlorhexidine to prep, US used to place 20g in LFA (1 attempt). Easy flush, easy draw. Tegaderm applied and tape to secure.
[2020-03-13] MEDS ORDERED: Iopamidol 755 MG/ML 500 ML Multipack Bottle IVPUSH STA (16:12)
[2020-03-13 16:43] LABS: CARBON DIOXIDE,CO2 27.3 mmol/L (21.0-32.0); POTASSIUM,K 3.5 mmol/L (3.5-5.1)
--- NOTE | 2020-03-13 16:47 | CT ---
DATE: 03/13/2020 CLINICAL HISTORY: Patient with focal neurological deficits. TECHNIQUE: Standard helical CT image acquisition through the head and neck was performed after intravenous contrast bolus enhancement. Multiplanar reconstructed images were performed and interpreted. COMPARISON: CT same day. FINDINGS: There is no proximal intracranial large vessel occlusion. There is mild diffuse intracranial atherosclerosis. 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 The origins of the great vessels from the aortic arch are patent. The origin of the right vertebral artery is patent. The origin of the left vertebral artery is patent. The common carotid arteries are patent There is no stenosis at the origin of the right internal carotid artery. There is no stenosis at the origin of the left internal carotid artery. The rest of the cervical segments of the internal carotid arteries are patent up to their intracranial segments. The intracranial segments of the internal carotid arteries are patent. The left vertebral artery is dominant. The cervical segments of the vertebral arteries are patent. The intracranial segments of the vertebral arteries are patent. The visualized lung apices are unremarkable The thyroid gland is unremarkable. The soft tissues of the neck are unremarkable. There are degenerative changes in the cervical spine. IMPRESSION: 1. No proximal intracranial large vessel occlusion. 2. Mild diffuse intracranial atherosclerosis. 3. Patent cervical vasculature. Please note that all CT scans at this facility use dose modulation, iterative reconstruction, and/or weight-based dosing when appropriate to reduce radiation dose to as low as reasonably achievable. Dictated by Sabina Bagley MD @ Mar 13 2020 10:06PM Signed by Dr. Sabina Bagley @ Mar 13 2020 10:06PM
[2020-03-13 17:14] LABS: CORONAVIRUS COVID-19 NAA NEGATIVE (NEGATIVE); INFLUENZA A NAA NEGATIVE (NEGATIVE); INFLUENZA B NAA NEGATIVE (NEGATIVE)
--- NOTE | 2020-03-13 17:22 | CR ---
Indication: Stroke Technique: AP portable upright single view study Comparison: March 02, 2019 Findings: Enlarged heart. Coarse calcification overlying the left heart unchanged. Basilar consolidation on the right. Background pattern of what is likely edema. The overall appearance has significantly worsened especially at the right base Impression: 1. Enlarged heart unchanged. 2. Basilar consolidation on the right likely pneumonia. 3. Background pattern of what is likely edema. The findings have globally worsened since the prior examination, especially the right base. Dictated by Daniel Bruno MD @ Mar 13 2020 5:19PM Signed by Dr. Daniel Bruno @ Mar 13 2020 5:20PM
--- NOTE | 2020-03-13 22:57 | PCM.HP.2 ---
H&P History of Present Illness - General Date of Service: 03/13/20 Admit Problem/Dx: Admission Diagnosis/Problem Admission Diagnosis/Problem TIA, Transient ischemic attack - History of Present Illness Initial Comments - Free Text/Narative: 84 yo female with pmh of dementia, chronic back pain, and HTN who was brought in today as [place] [facility] noticed problems with gait and slurred speech. It required two people to assist her to the bathroom. PAtient reports she choked on a pill and got confused afterwords and had difficulty communicating afterwords. In the ED her symptoms resolved and she claims she is back to her usual self. Back Pain Score (Numeric/FACES): 6 - Related Data Allergies/Adverse Reactions: Allergies Allergy/AdvReac Type Severity Reaction Status Date / Time morphine Allergy Cannot Verified 03/13/20 15:57 Remember pregabalin [From Lyrica] Allergy Cannot Verified 03/13/20 15:57 Remember Home Medications: Home Meds Calcium Carb, Citrate/Vit D3 [Calcium + D3 ER Tablet] 1 tab PO BID 03/02/19 [History] Celecoxib [CeleBREX] 200 mg PO QPM 03/02/19 [History] Furosemide [Lasix] 60 mg PO DAILY 03/02/19 [History] Glucosam/Chond/Collagen/Hyalur [Glucosamine Chondroitin] 1 tab PO BID 03/02/19 [History] Hydrocodone/Acetaminophen [[place] 10-325 Tablet] 1 tab PO BID PRN 03/02/19 [History] Losartan [Cozaar] 100 mg PO DAILY 03/02/19 [History] Multivitamin [Multi-Vitamin Daily] 1 tab PO BID 03/02/19 [History] [place]-3/DHA/Epa/Fish Oil [[place] 3 500 Softgel] 1,000 mg PO BID 03/02/19 [History] Primidone [Mysoline] 150 mg PO QID 03/02/19 [History] Metoprolol Tartrate 50 mg PO BID 03/04/19 [History] Ciprofloxacin [Ciprofloxacin HCl] 500 mg PO BID #14 tablet 03/05/19 [Rx] metroNIDAZOLE 250 mg PO Q8H #21 tablet 03/05/19 [Rx] Past Medical History HEENT History: Reports: Glaucoma, Impaired Vision, Sinusitis Cardiovascular History: Reports: High Cholesterol, Hypertension Gastrointestinal History: Reports: Chronic Constipation Genitourinary History: Reports: Urinary Incontinence [employer] History: Reports: Musculoskeletal History: Reports: Arthritis, Back Pain, Chronic Neurological History: Reports: Other (See Below) Other Neuro History: Tremors Psychiatric History: Reports: Dementia Endocrine/Metabolic History: Reports: Obesity/BMI 30+ - Infectious Disease History Infectious Disease History: Reports: Chicken Pox, Measles - Past Surgical History HEENT Surgical History: Reports: None Cardiovascular Surgical History: Reports: None Respiratory Surgical History: Reports: None GI Surgical History: Reports: None Female Surgical History: Reports: Kidney stone extraction Endocrine Surgical History: Reports: None Musculoskeletal Surgical History: Reports: Hip Replacement Other Musculoskeletal Surgeries/Procedures:: bilateral hip replacement Dermatological Surgical History: Reports: None Social & Family History - Family History Family Medical History: No Pertinent Family History Cardiac: Reports: [place] - Tobacco Use Tobacco Use Status *Q: Never Tobacco User - Caffeine Use Caffeine Use: Reports: Coffee - Recreational Drug Use Recreational Drug Use: No H&P Review of Systems - Review of Systems: Review Of Systems: Comprehensive ROS is negative, except as noted in HPI. Exam - Exam Exam: See Below - Vital Signs Vital Signs: Last Vital Signs Temp 37.2 C 03/13/20 20:25 Pulse 92 03/13/20 20:25 Resp 18 03/13/20 20:25 BP 132/62 03/13/20 20:25 Pulse Ox 94 L 03/13/20 20:30 Weight: 82.1 kg - Exam General: Alert, Oriented HEENT: Mucosa Moist & [place] Lungs: Clear to Auscultation, Normal Respiratory Effort Cardiovascular: Regular Rate, Regular Rhythm GI/Abdominal Exam: Normal Bowel Sounds, Soft, Non-Tender Extremities: Non-Tender, No Pedal Edema Skin: Warm, Dry, Intact - Patient Data Lab Results Last 24 hrs: Laboratory Results - last 24 hr 03/13/20 03/13/20 03/13/20 Range/Units 15:56 16:00 16:09 WBC 15.42 H (4.0-11.0) K/uL RBC 4.56 (4.30-5.90) M/uL Hgb 14.5 (12.0-16.0) g/dL Hct 43.7 (36.0-46.0) % MCV 95.8 (80.0-98.0) fL MCH 31.8 (27.0-32.0) pg MCHC 33.2 (31.0-37.0) g/dL RDW Std Deviation 48.4 (28.0-62.0) fl RDW Coeff of [place]um 14 (11.0-15.0) % Plt Count 135 L (150-400) K/uL MPV 9.30 (7.40-12.00) fL Neut % (Auto) 87.9 H (48.0-80.0) % Lymph % (Auto) 4.5 L (16.0-40.0) % Morris % (Auto) 6.6 (0.0-15.0) % Eos % (Auto) 0.8 (0.0-7.0) % Baso % (Auto) 0.2 (0.0-1.5) % Neut # (Auto) 13.5 H (1.4-5.7) K/uL Lymph # (Auto) 0.7 (0.6-2.4) K/uL Morris # (Auto) 1.0 H (0.0-0.8) K/uL Eos # (Auto) 0.1 (0.0-0.7) K/uL Baso # (Auto) 0.0 (0.0-0.1) K/uL Nucleated RBC % 0.0 /100WBC Nucleated RBCs # 0 K/uL INR APTT (18.6-31.3) SEC Sodium (136-145) mmol/L Potassium (3.5-5.1) mmol/L Chloride (98-107) mmol/L Carbon Dioxide (21.0-32.0) mmol/L BUN (7.0-18.0) mg/dL Creatinine (0.6-1.0) mg/dL Est Cr Clr Drug Dosing mL/min Estimated GFR (MDRD) ml/min Glucose (74-106) mg/dL Calcium (8.5-10.1) mg/dL Phosphorus (2.6-4.7) mg/dL Magnesium (1.8-2.4) mg/dL Total Bilirubin (0.2-1.0) mg/dL AST (15-37) IU/L ALT (14-63) IU/L Alkaline Phosphatase (46-116) U/L Total Protein (6.4-8.2) g/dL Albumin (3.4-5.0) g/dL Globulin (2.6-4.0) g/dL Albumin/Globulin Ratio (0.9-1.6) Lipase (73-393) U/L Urine Opiates Screen NEGATIVE (NEGATIVE) Ur Oxycodone Screen NEGATIVE (NEGATIVE) Urine Methadone Screen NEGATIVE (NEGATIVE) Ur Barbiturates Screen POSITIVE (NEGATIVE) Ur Phencyclidine Scrn NEGATIVE (NEGATIVE) Ur Amphetamine Screen NEGATIVE (NEGATIVE) U Methamphetamines Scrn NEGATIVE (NEGATIVE) U Benzodiazepines Scrn NEGATIVE (NEGATIVE) U Cocaine Metab Screen NEGATIVE (NEGATIVE) U Marijuana (THC) Screen NEGATIVE (NEGATIVE) Ethyl Alcohol mg/dL Influenza Type A RNA NEGATIVE (NEGATIVE) Influenza Type B RNA NEGATIVE (NEGATIVE) SARS-CoV-2 RNA (JOCELYN) NEGATIVE (NEGATIVE) 03/13/20 03/13/20 Range/Units 16:09 16:09 WBC (4.0-11.0) K/uL RBC (4.30-5.90) M/uL Hgb (12.0-16.0) g/dL Hct (36.0-46.0) % MCV (80.0-98.0) fL MCH (27.0-32.0) pg MCHC (31.0-37.0) g/dL RDW Std Deviation (28.0-62.0) fl RDW Coeff of [place] (11.0-15.0) % Plt Count (150-400) K/uL MPV (7.40-12.00) fL Neut % (Auto) (48.0-80.0) % Lymph % (Auto) (16.0-40.0) % Morris % (Auto) (0.0-15.0) % Eos % (Auto) (0.0-7.0) % Baso % (Auto) (0.0-1.5) % Neut # (Auto) (1.4-5.7) K/uL Lymph # (Auto) (0.6-2.4) K/uL Morris # (Auto) (0.0-0.8) K/uL Eos # (Auto) (0.0-0.7) K/uL Baso # (Auto) (0.0-0.1) K/uL Nucleated RBC % /100WBC Nucleated RBCs # K/uL INR 1.10 APTT 23.2 (18.6-31.3) SEC Sodium 142 (136-145) mmol/L Potassium 3.5 (3.5-5.1) mmol/L Chloride 102 (98-107) mmol/L Carbon Dioxide 27.3 (21.0-32.0) mmol/L BUN 24 H (7.0-18.0) mg/dL Creatinine 1.3 H (0.6-1.0) mg/dL Est Cr Clr Drug Dosing 22.73 mL/min Estimated GFR (MDRD) 38.9 ml/min Glucose 180 H (74-106) mg/dL Calcium 9.3 (8.5-10.1) mg/dL Phosphorus 2.9 (2.6-4.7) mg/dL Magnesium 1.7 L (1.8-2.4) mg/dL Total Bilirubin 0.9 (0.2-1.0) mg/dL AST 36 (15-37) IU/L ALT 33 (14-63) IU/L Alkaline Phosphatase 125 H (46-116) U/L Total Protein 7.1 (6.4-8.2) g/dL Albumin 3.1 L (3.4-5.0) g/dL Globulin 4.0 (2.6-4.0) g/dL Albumin/Globulin Ratio 0.8 L (0.9-1.6) Lipase 70 L (73-393) U/L Urine Opiates Screen (NEGATIVE) Ur Oxycodone Screen (NEGATIVE) Urine Methadone Screen (NEGATIVE) Ur Barbiturates Screen (NEGATIVE) Ur Phencyclidine Scrn (NEGATIVE) Ur Amphetamine Screen (NEGATIVE) U Methamphetamines Scrn (NEGATIVE) U Benzodiazepines Scrn (NEGATIVE) U Cocaine Metab Screen (NEGATIVE) U Marijuana (THC) Screen (NEGATIVE) Ethyl Alcohol 5 mg/dL Influenza Type A RNA (NEGATIVE) Influenza Type B RNA (NEGATIVE) SARS-CoV-2 RNA (JOCELYN) (NEGATIVE) Result Diagrams: 03/13/20 16:09 03/13/20 16:09 Sepsis Event Note - Evaluation Sepsis Screening Result: No Definite Risk - Focused Exam Vital Signs: Vital Signs Temp Pulse Resp BP Pulse Ox 03/13/20 20:30 94 L 03/13/20 20:25 37.2 C 92 18 132/62 89 L 03/13/20 19:24 90 14 108/47 L 94 L 03/13/20 14:15 36.6 C 103 H 18 151/72 H 92 L Problem List Initiated/Reviewed/Updated: Yes Orders Last 24hrs: Active Orders 24 hr Category Date Time Status Patient Status [ADT] Routine ADT 03/13/20 17:42 Active Telemetry Monitoring [Cardiac Monitoring] [RC] Q8H Care 03/13/20 18:22 Active Regular Diet [DIET] Diet 03/13/20 Breakfast Ordered Assessment/Plan Comment:: 84 yo female admitted due to concerns of possible TIA. We will monitor overnight on telemetry. We will get brain MRI if available and consult PT/Speech.
[2020-03-13] MEDS ORDERED: Acetaminophen/HYDROcodone 325-10 MG Tab PO PRN (22:58)
[2020-03-14] MEDS: metroNIDAZOLE 250 MG Tab PO SCH ×2 (00:35→09:08)
[2020-03-14] MEDS: Primidone 50 MG Tab PO SCH ×5 (00:35→23:24)
[2020-03-14 06:23] LABS: CARBON DIOXIDE,CO2 30.8 mmol/L (21.0-32.0); POTASSIUM,K 3.5 mmol/L (3.5-5.1)
[2020-03-14] MEDS ORDERED: Ciprofloxacin 500 MG Tab PO SCH (09:00)
[2020-03-14] MEDS: Fish Oil/Omega-3 Fatty Acids 1 Gm Cap PO SCH ×2 (09:09→20:27)
[2020-03-14] MEDS: Multivitamin Tab PO SCH ×2 (09:10→20:28)
[2020-03-14] MEDS ORDERED: Acetaminophen 325 MG Tab PO PRN (09:41)
[2020-03-14] MEDS: COLLAGEN PO SCH ×2 (10:00→20:29)
[2020-03-14] MEDS: CHOND PO SCH ×2 (10:00→20:29)
[2020-03-14] MEDS: VIT D3 PO SCH ×2 (10:00→20:29)
[2020-03-14] MEDS: CALCIUM CARB CITRATE PO SCH ×2 (10:00→20:29)
[2020-03-14] MEDS: GLUCOSAM PO SCH ×2 (10:00→20:29)
[2020-03-14] MEDS: HYALUR PO SCH ×2 (10:00→20:29)
[2020-03-14] MEDS: Losartan 50 MG Tab PO SCH (10:10)
[2020-03-14] MEDS: Furosemide 20 MG Tab PO SCH (10:10)
[2020-03-14] MEDS: Metoprolol Tartrate 50 MG Tab PO SCH ×2 (10:10→20:27)
[2020-03-14] MEDS: Piperacillin/Tazobactam 3.375 GM in Sodium Chloride 0.9% 100 ML IV SCH ×3 (11:48→23:26)
[2020-03-14] MEDS: Azithromycin 250 MG Tab PO SCH (11:55)
[2020-03-14] MEDS: Sodium Chloride 0.9% 1,000 ML IV SCH ×3 (11:58→23:25)
[2020-03-14] MEDS ORDERED: Gadobenate Dimeglumine 529 MG/ML 20 ML SDV IVPUSH STA (12:42)
--- NOTE | 2020-03-14 13:09 | US ---
INDICATION: Acute cholecystitis. TECHNIQUE: Ultrasound abdomen limited. Sonographic images of the right upper quadrant were obtained using warner-scale and color Doppler images. COMPARISON: March 03, 2019. FINDINGS: Liver: Normal in size and echotexture. No masses. No intrahepatic biliary dilatation. Gallbladder: Multiple gallbladder stones creating a wall echo shadow complex. No sign of gallbladder wall thickening or pericholecystic fluid. Negative Sotomayor sign. Common bile duct: 3 mm. Pancreas: Unremarkable. Right kidney: Normal in size. Normal echotexture and cortex. No masses, stones, or hydronephrosis. Vasculature: Proximal abdominal aorta and IVC are normal. IMPRESSION: Cholelithiasis without convincing evidence of acute cholecystitis. The remainder of the exam is unremarkable. Dictated by Jimmy Sanchez MD @ Mar 14 2020 1:02PM Signed by Dr. Jimmy Sanchez @ Mar 14 2020 1:08PM
--- NOTE | 2020-03-14 13:25 | PCM.PN ---
- General Info Date of Service: 03/14/20 Admission Dx/Problem (Free Text): Admission Diagnosis/Problem Admission Diagnosis/Problem TIA, Transient ischemic attack Subjective Update: Reports she is feeling good this morning, back to normal. Denies any chest pain shortness of breath. Reports chronic back pain that is not more than normal. Alert and oriented no concerns this morning. Eager to get back home understands she is awaiting MRI and other testing. Functional Status: Reports: Pain Controlled, Tolerating Diet, Ambulating, Urinating - Review of Systems General: Reports: Weakness (Reports bilateral lower leg weakness, reports at home she is using a walker with ambulation and has been doing so for 10 years) Pulmonary: Reports: No Symptoms. Denies: Shortness of Breath, Cough, Sputum Cardiovascular: Reports: No Symptoms. Denies: Chest Pain Gastrointestinal: Reports: No Symptoms. Denies: Abdominal Pain, Nausea, Vomiting Genitourinary: Reports: No Symptoms. Denies: Dysuria Musculoskeletal: Reports: No Symptoms Skin: Reports: No Symptoms Neurological: Reports: Weakness (Bilateral lower leg weakness). Denies: Confusion, Headache Psychiatric: Reports: No Symptoms. Denies: Confusion - Patient Data Vitals - Most Recent: Last Vital Signs Temp 97.9 F 03/14/20 11:30 Pulse 91 03/14/20 11:30 Resp 20 03/14/20 11:30 BP 100/52 L 03/14/20 11:30 Pulse Ox 92 L 03/14/20 11:30 Weight - Most Recent: 82.1 kg I&O - Last 24 Hours: Intake & Output 03/13/20 03/14/20 03/14/20 22:59 06:59 14:59 Intake Total 100 Output Total 500 Balance -400 Lab Results Last 24 Hours: Laboratory Results - last 24 hr 03/13/20 03/13/20 03/13/20 Range/Units 15:56 16:00 16:09 WBC 15.42 H (4.0-11.0) K/uL RBC 4.56 (4.30-5.90) M/uL Hgb 14.5 (12.0-16.0) g/dL Hct 43.7 (36.0-46.0) % MCV 95.8 (80.0-98.0) fL MCH 31.8 (27.0-32.0) pg MCHC 33.2 (31.0-37.0) g/dL RDW Std Deviation 48.4 (28.0-62.0) fl RDW Coeff of Nahum 14 (11.0-15.0) % Plt Count 135 L (150-400) K/uL MPV 9.30 (7.40-12.00) fL Neut % (Auto) 87.9 H (48.0-80.0) % Lymph % (Auto) 4.5 L (16.0-40.0) % [place] % (Auto) 6.6 (0.0-15.0) % Eos % (Auto) 0.8 (0.0-7.0) % Baso % (Auto) 0.2 (0.0-1.5) % Neut # (Auto) 13.5 H (1.4-5.7) K/uL Lymph # (Auto) 0.7 (0.6-2.4) K/uL [place] # (Auto) 1.0 H (0.0-0.8) K/uL Eos # (Auto) 0.1 (0.0-0.7) K/uL Baso # (Auto) 0.0 (0.0-0.1) K/uL Nucleated RBC % 0.0 /100WBC Nucleated RBCs # 0 K/uL INR APTT (18.6-31.3) SEC Sodium (136-145) mmol/L Potassium (3.5-5.1) mmol/L Chloride (98-107) mmol/L Carbon Dioxide (21.0-32.0) mmol/L BUN (7.0-18.0) mg/dL Creatinine (0.6-1.0) mg/dL Est Cr Clr Drug Dosing mL/min Estimated GFR (MDRD) ml/min Glucose (74-106) mg/dL POC Glucose (60-110) mg/dL Calcium (8.5-10.1) mg/dL Phosphorus (2.6-4.7) mg/dL Magnesium (1.8-2.4) mg/dL Total Bilirubin (0.2-1.0) mg/dL AST (15-37) IU/L ALT (14-63) IU/L Alkaline Phosphatase (46-116) U/L Total Protein (6.4-8.2) g/dL Albumin (3.4-5.0) g/dL Globulin (2.6-4.0) g/dL Albumin/Globulin Ratio (0.9-1.6) Lipase (73-393) U/L Vitamin D 25-Hydroxy (30.0-100.0) ng/mL Urine Color Urine Appearance Urine pH (5.0-8.0) Ur Specific [place] (1.001-1.035) Urine Protein (NEGATIVE) mg/dL Urine Glucose (UA) (NEGATIVE) mg/dL Urine Ketones (NEGATIVE) mg/dL Urine Occult Blood (NEGATIVE) Urine Nitrite (NEGATIVE) Urine Bilirubin (NEGATIVE) Urine Urobilinogen (<2.0) EU/dL Ur Leukocyte Esterase (NEGATIVE) Urine RBC (0-2/HPF) Urine WBC (0-5/HPF) Ur Epithelial Cells (NONE-FEW) Urine Bacteria (NEGATIVE) Urine Mucus (NONE-MOD) Urine Opiates Screen NEGATIVE (NEGATIVE) Ur Oxycodone Screen NEGATIVE (NEGATIVE) Urine Methadone Screen NEGATIVE (NEGATIVE) Ur Barbiturates Screen POSITIVE (NEGATIVE) Ur Phencyclidine Scrn NEGATIVE (NEGATIVE) Ur Amphetamine Screen NEGATIVE (NEGATIVE) U Methamphetamines Scrn NEGATIVE (NEGATIVE) U Benzodiazepines Scrn NEGATIVE (NEGATIVE) U Cocaine Metab Screen NEGATIVE (NEGATIVE) U Marijuana (THC) Screen NEGATIVE (NEGATIVE) Ethyl Alcohol mg/dL Influenza Type A RNA NEGATIVE (NEGATIVE) Influenza Type B RNA NEGATIVE (NEGATIVE) SARS-CoV-2 RNA (JOCELYN) NEGATIVE (NEGATIVE) 03/13/20 03/13/20 03/13/20 Range/Units 16:09 16:09 23:55 WBC (4.0-11.0) K/uL RBC (4.30-5.90) M/uL Hgb (12.0-16.0) g/dL Hct (36.0-46.0) % MCV (80.0-98.0) fL MCH (27.0-32.0) pg MCHC (31.0-37.0) g/dL RDW Std Deviation (28.0-62.0) fl RDW Coeff of Nahum (11.0-15.0) % Plt Count (150-400) K/uL MPV (7.40-12.00) fL Neut % (Auto) (48.0-80.0) % Lymph % (Auto) (16.0-40.0) % [place] % (Auto) (0.0-15.0) % Eos % (Auto) (0.0-7.0) % Baso % (Auto) (0.0-1.5) % Neut # (Auto) (1.4-5.7) K/uL Lymph # (Auto) (0.6-2.4) K/uL [place] # (Auto) (0.0-0.8) K/uL Eos # (Auto) (0.0-0.7) K/uL Baso # (Auto) (0.0-0.1) K/uL Nucleated RBC % /100WBC Nucleated RBCs # K/uL INR 1.10 APTT 23.2 (18.6-31.3) SEC Sodium 142 (136-145) mmol/L Potassium 3.5 (3.5-5.1) mmol/L Chloride 102 (98-107) mmol/L Carbon Dioxide 27.3 (21.0-32.0) mmol/L BUN 24 H (7.0-18.0) mg/dL Creatinine 1.3 H (0.6-1.0) mg/dL Est Cr Clr Drug Dosing 22.73 mL/min Estimated GFR (MDRD) 38.9 ml/min Glucose 180 H (74-106) mg/dL POC Glucose (60-110) mg/dL Calcium 9.3 (8.5-10.1) mg/dL Phosphorus 2.9 (2.6-4.7) mg/dL Magnesium 1.7 L (1.8-2.4) mg/dL Total Bilirubin 0.9 (0.2-1.0) mg/dL AST 36 (15-37) IU/L ALT 33 (14-63) IU/L Alkaline Phosphatase 125 H (46-116) U/L Total Protein 7.1 (6.4-8.2) g/dL Albumin 3.1 L (3.4-5.0) g/dL Globulin 4.0 (2.6-4.0) g/dL Albumin/Globulin Ratio 0.8 L (0.9-1.6) Lipase 70 L (73-393) U/L Vitamin D 25-Hydroxy (30.0-100.0) ng/mL Urine Color YELLOW Urine Appearance CLEAR Urine pH 5.5 (5.0-8.0) Ur Specific [place] 1.010 (1.001-1.035) Urine Protein NEGATIVE (NEGATIVE) mg/dL Urine Glucose (UA) NEGATIVE (NEGATIVE) mg/dL Urine Ketones NEGATIVE (NEGATIVE) mg/dL Urine Occult Blood SMALL H (NEGATIVE) Urine Nitrite NEGATIVE (NEGATIVE) Urine Bilirubin NEGATIVE (NEGATIVE) Urine Urobilinogen 0.2 (<2.0) EU/dL Ur Leukocyte Esterase NEGATIVE (NEGATIVE) Urine RBC 0-2 (0-2/HPF) Urine WBC 0-1 (0-5/HPF) Ur Epithelial Cells RARE (NONE-FEW) Urine Bacteria RARE (NEGATIVE) Urine Mucus LIGHT (NONE-MOD) Urine Opiates Screen (NEGATIVE) Ur Oxycodone Screen (NEGATIVE) Urine Methadone Screen (NEGATIVE) Ur Barbiturates Screen (NEGATIVE) Ur Phencyclidine Scrn (NEGATIVE) Ur Amphetamine Screen (NEGATIVE) U Methamphetamines Scrn (NEGATIVE) U Benzodiazepines Scrn (NEGATIVE) U Cocaine Metab Screen (NEGATIVE) U Marijuana (THC) Screen (NEGATIVE) Ethyl Alcohol 5 mg/dL Influenza Type A RNA (NEGATIVE) Influenza Type B RNA (NEGATIVE) SARS-CoV-2 RNA (JOCELYN) (NEGATIVE) 03/14/20 03/14/20 03/14/20 Range/Units 06:00 06:00 06:00 WBC 21.72 H (4.0-11.0) K/uL RBC 3.97 L (4.30-5.90) M/uL Hgb 12.5 (12.0-16.0) g/dL Hct 38.5 (36.0-46.0) % MCV 97.0 (80.0-98.0) fL MCH 31.5 (27.0-32.0) pg MCHC 32.5 (31.0-37.0) g/dL RDW Std Deviation 49.0 (28.0-62.0) fl RDW Coeff of Nahum 14 (11.0-15.0) % Plt Count 169 (150-400) K/uL MPV 9.20 (7.40-12.00) fL Neut % (Auto) 85.3 H (48.0-80.0) % Lymph % (Auto) 6.6 L (16.0-40.0) % [place] % (Auto) 7.8 (0.0-15.0) % Eos % (Auto) 0.1 (0.0-7.0) % Baso % (Auto) 0.2 (0.0-1.5) % Neut # (Auto) 18.5 H (1.4-5.7) K/uL Lymph # (Auto) 1.4 (0.6-2.4) K/uL [place] # (Auto) 1.7 H (0.0-0.8) K/uL Eos # (Auto) 0.0 (0.0-0.7) K/uL Baso # (Auto) 0.0 (0.0-0.1) K/uL Nucleated RBC % 0.0 /100WBC Nucleated RBCs # 0 K/uL INR APTT (18.6-31.3) SEC Sodium 144 (136-145) mmol/L Potassium 3.5 (3.5-5.1) mmol/L Chloride 105 (98-107) mmol/L Carbon Dioxide 30.8 (21.0-32.0) mmol/L BUN 27 H (7.0-18.0) mg/dL Creatinine 1.4 H (0.6-1.0) mg/dL Est Cr Clr Drug Dosing 24.30 mL/min Estimated GFR (MDRD) 35.7 ml/min Glucose 154 H (74-106) mg/dL POC Glucose (60-110) mg/dL Calcium 8.8 (8.5-10.1) mg/dL Phosphorus (2.6-4.7) mg/dL Magnesium (1.8-2.4) mg/dL Total Bilirubin (0.2-1.0) mg/dL AST (15-37) IU/L ALT (14-63) IU/L Alkaline Phosphatase (46-116) U/L Total Protein (6.4-8.2) g/dL Albumin (3.4-5.0) g/dL Globulin (2.6-4.0) g/dL Albumin/Globulin Ratio (0.9-1.6) Lipase (73-393) U/L Vitamin D 25-Hydroxy 36.0 (30.0-100.0) ng/mL Urine Color Urine Appearance Urine pH (5.0-8.0) Ur Specific [place] (1.001-1.035) Urine Protein (NEGATIVE) mg/dL Urine Glucose (UA) (NEGATIVE) mg/dL Urine Ketones (NEGATIVE) mg/dL Urine Occult Blood (NEGATIVE) Urine Nitrite (NEGATIVE) Urine Bilirubin (NEGATIVE) Urine Urobilinogen (<2.0) EU/dL Ur Leukocyte Esterase (NEGATIVE) Urine RBC (0-2/HPF) Urine WBC (0-5/HPF) Ur Epithelial Cells (NONE-FEW) Urine Bacteria (NEGATIVE) Urine Mucus (NONE-MOD) Urine Opiates Screen (NEGATIVE) Ur Oxycodone Screen (NEGATIVE) Urine Methadone Screen (NEGATIVE) Ur Barbiturates Screen (NEGATIVE) Ur Phencyclidine Scrn (NEGATIVE) Ur Amphetamine Screen (NEGATIVE) U Methamphetamines Scrn (NEGATIVE) U Benzodiazepines Scrn (NEGATIVE) U Cocaine Metab Screen (NEGATIVE) U Marijuana (THC) Screen (NEGATIVE) Ethyl Alcohol mg/dL Influenza Type A RNA (NEGATIVE) Influenza Type B RNA (NEGATIVE) SARS-CoV-2 RNA (JOCELYN) (NEGATIVE) 03/14/20 03/14/20 03/14/20 Range/Units 06:00 06:12 12:22 WBC (4.0-11.0) K/uL RBC (4.30-5.90) M/uL Hgb (12.0-16.0) g/dL Hct (36.0-46.0) % MCV (80.0-98.0) fL MCH (27.0-32.0) pg MCHC (31.0-37.0) g/dL RDW Std Deviation (28.0-62.0) fl RDW Coeff of Nahum (11.0-15.0) % Plt Count (150-400) K/uL MPV (7.40-12.00) fL Neut % (Auto) (48.0-80.0) % Lymph % (Auto) (16.0-40.0) % [place] % (Auto) (0.0-15.0) % Eos % (Auto) (0.0-7.0) % Baso % (Auto) (0.0-1.5) % Neut # (Auto) (1.4-5.7) K/uL Lymph # (Auto) (0.6-2.4) K/uL [place] # (Auto) (0.0-0.8) K/uL Eos # (Auto) (0.0-0.7) K/uL Baso # (Auto) (0.0-0.1) K/uL Nucleated RBC % /100WBC Nucleated RBCs # K/uL INR APTT (18.6-31.3) SEC Sodium (136-145) mmol/L Potassium (3.5-5.1) mmol/L Chloride (98-107) mmol/L Carbon Dioxide (21.0-32.0) mmol/L BUN (7.0-18.0) mg/dL Creatinine (0.6-1.0) mg/dL Est Cr Clr Drug Dosing mL/min Estimated GFR (MDRD) ml/min Glucose (74-106) mg/dL POC Glucose 195 H 142 H (60-110) mg/dL Calcium (8.5-10.1) mg/dL Phosphorus (2.6-4.7) mg/dL Magnesium 1.9 (1.8-2.4) mg/dL Total Bilirubin (0.2-1.0) mg/dL AST (15-37) IU/L ALT (14-63) IU/L Alkaline Phosphatase (46-116) U/L Total Protein (6.4-8.2) g/dL Albumin (3.4-5.0) g/dL Globulin (2.6-4.0) g/dL Albumin/Globulin Ratio (0.9-1.6) Lipase (73-393) U/L Vitamin D 25-Hydroxy (30.0-100.0) ng/mL Urine Color Urine Appearance Urine pH (5.0-8.0) Ur Specific [place] (1.001-1.035) Urine Protein (NEGATIVE) mg/dL Urine Glucose (UA) (NEGATIVE) mg/dL Urine Ketones (NEGATIVE) mg/dL Urine Occult Blood (NEGATIVE) Urine Nitrite (NEGATIVE) Urine Bilirubin (NEGATIVE) Urine Urobilinogen (<2.0) EU/dL Ur Leukocyte Esterase (NEGATIVE) Urine RBC (0-2/HPF) Urine WBC (0-5/HPF) Ur Epithelial Cells (NONE-FEW) Urine Bacteria (NEGATIVE) Urine Mucus (NONE-MOD) Urine Opiates Screen (NEGATIVE) Ur Oxycodone Screen (NEGATIVE) Urine Methadone Screen (NEGATIVE) Ur Barbiturates Screen (NEGATIVE) Ur Phencyclidine Scrn (NEGATIVE) Ur Amphetamine Screen (NEGATIVE) U Methamphetamines Scrn (NEGATIVE) U Benzodiazepines Scrn (NEGATIVE) U Cocaine Metab Screen (NEGATIVE) U Marijuana (THC) Screen (NEGATIVE) Ethyl Alcohol mg/dL Influenza Type A RNA (NEGATIVE) Influenza Type B RNA (NEGATIVE) SARS-CoV-2 RNA (JOCELYN) (NEGATIVE) Med Orders - Current: Current Medications Acetaminophen (Tylenol) 650 mg PO Q4H PRN PRN Reason: Pain Hydrocodone Bitart/Acetaminophen (Terral 325-10 Mg) 1 tab PO BID PRN PRN Reason: Pain Azithromycin (Zithromax) 500 mg PO Q24H [facility] Last Admin: 03/14/20 11:55 Dose: 500 mg Documented by: Fish Oil (Fish Oil) 1 gm PO BID [facility] Last Admin: 03/14/20 09:09 Dose: 1 gm Documented by: Furosemide (Lasix) 60 mg PO DAILY [facility] Last Admin: 03/14/20 10:10 Dose: Not Given Documented by: Sodium Chloride (Normal Saline) 1,000 mls @ 100 mls/hr IV Q10H [facility] Last Admin: 03/14/20 11:58 Dose: 100 mls/hr Documented by: Piperacillin Sod/Tazobactam (Sod 3.375 gm/ Sodium Chloride) 100 mls @ 200 mls/hr IV Q6H [facility] Last Admin: 03/14/20 11:48 Dose: 200 mls/hr Documented by: Losartan Potassium (Cozaar) 100 mg PO DAILY [facility] Last Admin: 03/14/20 10:10 Dose: Not Given Documented by: Metoprolol Tartrate (Lopressor) 50 mg PO BID [facility] Last Admin: 03/14/20 10:10 Dose: Not Given Documented by: Multivitamins/Minerals/Vitamin C (Tab-A-Rossana) 1 tab PO BID [facility] Last Admin: 03/14/20 09:10 Dose: 1 tab Documented by: Calcium Carb, Citrate/Vit D3 [ Calcium + D3 Er Tablet] 1 each PO BID [facility] Last Admin: 03/14/20 10:00 Dose: Not Given Documented by: Glucosam/Chond/Collagen/Hyalur [ Glucosamine Chondroitin] 1 each PO BID [facility] Last Admin: 03/14/20 10:00 Dose: Not Given Documented by: Primidone (Mysoline) 150 mg PO QID [facility] Last Admin: 03/14/20 11:55 Dose: 150 mg Documented by: Discontinued Medications Celecoxib (Celebrex) 200 mg PO QPM [facility] Gadobenate Dimeglumine (Multihance) 20 ml IVPUSH ONETIME STA Stop: 03/14/20 12:43 Last Admin: 03/14/20 12:43 Dose: 16 ml Documented by: Iopamidol (Isovue Multipack-370 (76%)) 100 ml IVPUSH ONETIME STA Stop: 03/13/20 16:13 Last Admin: 03/13/20 16:12 Dose: 100 ml Documented by: Metronidazole (Metronidazole) 250 mg PO Q8H [facility] Last Admin: 03/14/20 09:08 Dose: Not Given Documented by: - Exam General: Alert, Oriented, Cooperative, No Acute Distress Lungs: Normal Respiratory Effort, Decreased Breath Sounds (Bibasilar) Cardiovascular: Regular Rate, Murmurs (Grade 3 systolic) GI/Abdominal Exam: Normal Bowel Sounds, Soft, Non-Tender Back Exam: Normal Inspection, Full Range of Motion Extremities: Normal Inspection, Normal Range of Motion, Non-Tender Neurological: No New Focal Deficit, Normal Speech, Strength Equal Bilateral, Cranial Nerves Intact Psy/Mental Status: Alert, Normal Affect, Normal Mood Sepsis Event Note - Evaluation Sepsis Screening Result: No Definite Risk - Focused Exam Vital Signs: Vital Signs Temp Pulse Resp BP Pulse Ox 03/14/20 11:30 97.9 F 91 20 100/52 L 92 L 03/14/20 07:00 98.0 F 89 20 102/40 L 94 L 03/14/20 04:00 98.3 F 85 18 130/51 L 94 L - Problem List & Annotations (1) TIA (transient ischemic attack) SNOMED Code(s): 793076728 Code(s): G45.9 - TRANSIENT CEREBRAL ISCHEMIC ATTACK, UNSPECIFIED Status: Acute Current Visit: Yes (2) Aspiration pneumonia SNOMED Code(s): 832164631 Code(s): J69.0 - PNEUMONITIS DUE TO INHALATION OF FOOD AND VOMIT Status: Acute Current Visit: Yes (3) Weakness SNOMED Code(s): 77940328 Code(s): R53.1 - WEAKNESS Status: Acute Current Visit: No (4) Dementia SNOMED Code(s): 54566688 Code(s): F03.90 - UNSPECIFIED DEMENTIA WITHOUT BEHAVIORAL DISTURBANCE Status: Chronic Current Visit: Yes (5) Chronic back pain SNOMED Code(s): 436890711 Code(s): M54.9 - DORSALGIA, UNSPECIFIED; G89.29 - OTHER CHRONIC PAIN Status: Chronic Current Visit: Yes (6) Hypertension SNOMED Code(s): 01693019 Code(s): I10 - ESSENTIAL (PRIMARY) HYPERTENSION Status: Chronic Current Visit: Yes (7) Tremors of nervous system SNOMED Code(s): 16123904 Code(s): R25.1 - TREMOR, UNSPECIFIED Status: Chronic Current Visit: Yes (8) HLD (hyperlipidemia) SNOMED Code(s): 73362653 Code(s): E78.5 - HYPERLIPIDEMIA, UNSPECIFIED Status: Chronic Current Visit: Yes (9) Glaucoma SNOMED Code(s): 58997441 Code(s): H40.9 - UNSPECIFIED GLAUCOMA Status: Chronic Current Visit: Yes (10) Osteoarthritis SNOMED Code(s): 636529734 Code(s): M19.90 - UNSPECIFIED OSTEOARTHRITIS, UNSPECIFIED SITE Status: Chronic Current Visit: Yes (11) ALEXANDRA (acute kidney injury) SNOMED Code(s): 41426720, 55537136 Code(s): N17.9 - ACUTE KIDNEY FAILURE, UNSPECIFIED Status: Acute Current Visit: Yes - Problem List Review Problem List Initiated/Reviewed/Updated: Yes - My Orders Last 24 Hours: My Active Orders 03/14/20 09:23 Echo Comp wo Cont [US] Routine 03/14/20 09:41 Acetaminophen [TylenoL] 650 mg PO Q4H PRN 03/14/20 09:45 Sodium Chloride 0.9% [Normal Saline] 1,000 ml IV Q10H 03/14/20 10:18 PHENOBARBITAL [REF] Routine 03/14/20 10:28 PRIMIDONE (MYSOLINE(R)), SERUM [REF] Routine 03/14/20 11:00 Azithromycin [Zithromax] 500 mg PO Q24H Piperacillin/Tazobactam [Piperacil-Tazobact] 3.375 gm Sodium Chloride 0.9% [Normal Saline] 100 ml IV Q6H - Plan Plan:: 84 yo female admitted due to concerns of possible TIA. 1. TIA, possible CVA -Appears back at baseline no further speech or swallowing difficulties -Speech therapy assessed patient this morning with no concerns. -MRI of brain obtained today which shows no acute intracranial abnormality does note mild to moderate chronic microvascular ischemic changes with superimposed chronic lacunar infarctions in the bilateral basal ganglia and right cerebellar hemisphere, mild to moderate diffuse cerebral volume loss -Continue to monitor on telemetry. -Consult physical therapy -Obtain echo, monitor lipid panel A1c and TSH -Start ASA 81 mg p.o. -Takes fish oil at home will need to consider statin due to history of CVA noted on MRI. -We will likely need Zio patch on discharge to evaluate for arrhythmias. 2. Possible aspiration pneumonia -Chest x-ray shows possible right-sided pneumonia did choke on pill yesterday concern for aspiration -Speech therapy did evaluate and patient did well. No swallowing difficulties -We will start Zosyn and azithromycin -Leukocytosis noted today at 21,000 we will recheck in a.m. -No respiratory distress noted, no cough fever chills or shortness of breath. -Abdominal ultrasound was obtained secondary to patient's history of acute cholecystitis. She reported mild nausea today but no abdominal pain. Abdominal ultrasound shows cholelithiasis but no acute cholecystitis or gallbladder wall thickening. 3. History tremors -Is on primidone 150 mg 4 times daily -Concern for possible phenobarbital toxicity with high dosing of primidone. Will obtain phenobarbital and primidone levels both are send outs will need to be followed by PCP. -We will set up outpatient consultation with Dr. Gill, neurology for other possible medications for tremors as primidone dosing is significant in her age. 4. HTN -Blood pressure on the softer side this morning asymptomatic. -We will hold losartan and Lasix. 5. Mild ALEXANDRA -Elevated from baseline did receive contrast dye with CTAs of head and neck last night -We will give gentle IV fluids today and monitor in a.m. -Hold nephrotoxic medications 6. chronic back pain -Heat or ice therapy as needed VTE prophylaxis: SCDs, daughter reports history of bleeding in eye. CODE STATUS: DNR/DNI Dispo: 1 to 2 days pending improvement Discussed care with daughter Joy, . She was updated on admission and treatment course for problems listed above. She is updated on MRI findings and is in agreement with Dr. Gill, neurology, follow-up regarding tremors and possible medication change. She is eager to have Latoya return home as soon as she is medically stable.
--- NOTE | 2020-03-14 13:37 | MR ---
INDICATION: Slurred speech. TECHNIQUE: Multiplanar multisequence MR imaging was acquired through the brain prior to and following intravenous contrast. COMPARISON: CT brain 03/13/2020. FINDINGS: Prominence of the ventricles and sulci compatible with mild to moderate diffuse cerebral volume loss. No mass effect or midline shift. Patchy T2 FLAIR hyperintensities in the supratentorial white matter, typical for [id number] chronic microvascular ischemic changes with superimposed chronic lacunar infarctions in the bilateral basal ganglia. Very small chronic lacunar infarction right cerebellar hemisphere (series 501 imaged 8). No diffusion restriction to suggest acute infarction. No intracranial hemorrhage or pathologic extra-axial fluid collection. No pathologic intracranial enhancement. The major arterial flow voids of the skullbase are preserved. Thinning of the ocular lenses. The paranasal sinuses are well aerated. The mastoid air cells are clear. IMPRESSION: 1. No acute intracranial abnormality. 2. [id number] chronic microvascular ischemic changes with superimposed chronic lacunar infarctions in the bilateral basal ganglia and right cerebellar hemisphere. 3. Vyan-ju-qrovnmus diffuse cerebral volume loss. Dictated by Giorgio Yee MD @ Mar 14 2020 1:29PM Signed by Dr. Giorgio Yee @ Mar 14 2020 1:36PM
[2020-03-14] MEDS ORDERED: Heparin Sodium 5,000 Units/ML Vial SUBCUT SCH (14:15)
[2020-03-14] MEDS ORDERED: Celecoxib 100 MG Cap PO SCH (18:00)
[2020-03-14] MEDS ORDERED: atorvaSTATin 40 MG Tab PO SCH (21:00)
[2020-03-15] MEDS: Piperacillin/Tazobactam 3.375 GM in Sodium Chloride 0.9% 100 ML IV SCH ×2 (04:35→10:16)
[2020-03-15] MEDS: Primidone 50 MG Tab PO SCH (05:02)
[2020-03-15 05:50] LABS: HEMOGLOBIN A1C 5.9 %
[2020-03-15 06:03] LABS: CARBON DIOXIDE,CO2 27.5 mmol/L (21.0-32.0); POTASSIUM,K 3.3 mmol/L (3.5-5.1)
[2020-03-15] MEDS: Furosemide 20 MG Tab PO SCH (08:01)
[2020-03-15] MEDS: Multivitamin Tab PO SCH (08:01)
[2020-03-15] MEDS: Fish Oil/Omega-3 Fatty Acids 1 Gm Cap PO SCH ×2 (08:01→08:12)
[2020-03-15] MEDS: Aspirin 81 MG Tab.Chew PO SCH ×2 (08:01→08:09)
[2020-03-15] MEDS: Losartan 50 MG Tab PO SCH (08:02)
[2020-03-15] MEDS: Metoprolol Tartrate 50 MG Tab PO SCH (08:02)
[2020-03-15] MEDS: CALCIUM CARB CITRATE PO SCH (08:03)
[2020-03-15] MEDS: COLLAGEN PO SCH (08:03)
[2020-03-15] MEDS: VIT D3 PO SCH (08:03)
[2020-03-15] MEDS: GLUCOSAM PO SCH (08:03)
[2020-03-15] MEDS: HYALUR PO SCH (08:03)
[2020-03-15] MEDS: CHOND PO SCH (08:03)
--- NOTE | 2020-03-15 09:14 | PCM.DCSUM1 ---
Discharge Summary - Hospital Course Brief History: 84 yo female with pmh of dementia, chronic back pain, and HTN who was brought in today as [facility] noticed problems with gait and slurred speech. It required two people to assist her to the bathroom. PAtient reports she choked on a pill and got confused afterwords and had difficulty communicating afterwords. In the ED her symptoms resolved and she claims she is back to her usual self. Diagnosis: Stroke: No - Discharge Data Discharge Date: 03/15/20 Discharge Disposition: Home, W Home Health Agency 06 Condition: Good - Referral to Home Health Date of Face to Face Encounter: 03/15/20 Reason for Homebound Status: Latoya is homebound needing assistance of walker and caregiver to leave the house and make it to appointments, due to unsteady gait and ambulation intolerance. Primary Care Physician: Tyrone White MD Skilled Need: Latoya is in need of long term care to monitor symptoms of weakness, monitor blood pressure, and medication administration monitoring. She will benefit from physical therapy evaluating and treating due to increased weakness and debility. She would also benefit from occupational therapy evaluating home safety as well as effectiveness on completing ADLs. - Discharge Diagnosis/Problem(s) (1) TIA (transient ischemic attack) SNOMED Code(s): 213165139 ICD Code: G45.9 - TRANSIENT CEREBRAL ISCHEMIC ATTACK, UNSPECIFIED Status: Acute Current Visit: Yes (2) Aspiration pneumonia SNOMED Code(s): 922776002 ICD Code: J69.0 - PNEUMONITIS DUE TO INHALATION OF FOOD AND VOMIT Status: Acute Current Visit: Yes (3) Weakness SNOMED Code(s): 58542745 ICD Code: R53.1 - WEAKNESS Status: Acute Current Visit: No (4) Dementia SNOMED Code(s): 44125757 ICD Code: F03.90 - UNSPECIFIED DEMENTIA WITHOUT BEHAVIORAL DISTURBANCE Status: Chronic Current Visit: Yes (5) Chronic back pain SNOMED Code(s): 127969812 ICD Code: M54.9 - DORSALGIA, UNSPECIFIED; G89.29 - OTHER CHRONIC PAIN Status: Chronic Current Visit: Yes (6) Hypertension SNOMED Code(s): 19774544 ICD Code: I10 - ESSENTIAL (PRIMARY) HYPERTENSION Status: Chronic Current Visit: Yes (7) Tremors of nervous system SNOMED Code(s): 79679907 ICD Code: R25.1 - TREMOR, UNSPECIFIED Status: Chronic Current Visit: Yes (8) HLD (hyperlipidemia) SNOMED Code(s): 56273175 ICD Code: E78.5 - HYPERLIPIDEMIA, UNSPECIFIED Status: Chronic Current Visit: Yes (9) Glaucoma SNOMED Code(s): 80565549 ICD Code: H40.9 - UNSPECIFIED GLAUCOMA Status: Chronic Current Visit: Yes (10) Osteoarthritis SNOMED Code(s): 685164799 ICD Code: M19.90 - UNSPECIFIED OSTEOARTHRITIS, UNSPECIFIED SITE Status: Chronic Current Visit: Yes (11) ALEXANDRA (acute kidney injury) SNOMED Code(s): 31235550, 47211963 ICD Code: N17.9 - ACUTE KIDNEY FAILURE, UNSPECIFIED Status: Acute Current Visit: Yes - Patient Summary/Data Consults: Consultations 03/13/20 23:40 Consult to Speech Language Pathology [[employer] Evaluation and Treatment] [CONS] Routine PT Evaluation and Treatment [CONS] Routine 03/14/20 15:02 Consult to Home Health [CONS] Routine Hospital Course: Admission diagnoses; TIA versus CVA Slurred speech Lower extremity weakness Aspiration pneumonia ALEXANDRA Discharge diagnoses: TIA Aspiration pneumonia Deconditioning ALEXANDRA resolved Other PMH: Dementia Chronic back pain HTN Tremors HLD Glaucoma Osteoarthritis Latoya was admitted secondary to concerns of slurred speech and troubles walking as well as an event of choking on a pill at the [facility]. She was admitted and evaluated for TIA versus CVA. Head CT was normal showed mild atrophy. Head and neck CTA revealed mild scattered atherosclerosis but no large vessel occlusion. 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 During her stay she was evaluated with echo that is still pending. LDL is 86. She was started on aspirin as well as atorvastatin 40 mg along with her fish oil. She was monitored on telemetry which did not show any arrhythmia. She was noted to have murmur she is unsure if this is new or not. She was also evaluated by physical therapy who felt she was safe and stable to go home continuing to use walker for ambulation. Also on admission chest x-ray was obtained which showed possible right pneumonia consider aspiration secondary to choking on a pill. She was started on Zosyn as well as azithromycin. Leukocytosis was noted on admission at 15,000 which did increase a to admission to 21,000. After antibiotics were started leukocytosis improved to 11,000 today. She was also given gentle IV fluids for mild ALEXANDRA which did also improve. Upon medication review she is noted to be on primidone 150 mg 4 times daily. Phenobarbital and primidone levels were drawn and are currently pending on discharge. Discussed medication with daughter as this could be causing some neurological concerns or debility with ambulation. We will set up outpatient evaluation with Dr. Gill, neurology to further evaluate tremors and possible medication changes from primidone. She will be discharged back to [place] today new medications include ASA 81 mg along with atorvastatin 40 mg. She will also have Augmentin twice daily for 5 more days for aspiration ammonia. I will also set up home health for physical therapy as well as occupational therapy to evaluate and treat. She is to follow-up with PCP in 1 to 2 weeks. She is to return to the ER or clinic if concerns should arise sooner. - Patient Instructions Diet: Heart Healthy Diet Activity: As Tolerated Driving: Do Not Drive Showering/Bathing: May Shower Notify Provider of: Fever, Increased Pain, Swelling and Redness, Drainage, Nausea and/or Vomiting Other/Special Instructions: Zio patch to be placed prior to discharge. Keep in place for 14 days. Remove and send in result to be sent to Dr. White. - Discharge Plan *PRESCRIPTION DRUG MONITORING PROGRAM REVIEWED*: Not Applicable *COPY OF PRESCRIPTION DRUG MONITORING REPORT IN PATIENT PENNY: Not Applicable Prescriptions/Med Rec: Aspirin 81 mg PO DAILY #30 tab.chew Amoxicillin/Clavulanate K [Augmentin 875-125 MG] 1 tab PO BID #10 tablet atorvaSTATin [Lipitor] 40 mg PO BEDTIME #30 tablet Home Medications: Home Meds Celecoxib [CeleBREX] 200 mg PO QPM 03/02/19 [History] Furosemide [Lasix] 60 mg PO DAILY 03/02/19 [History] Hydrocodone/Acetaminophen [Ivins 10-325 Tablet] 1 tab PO Q4H PRN 03/02/19 [History] Losartan [Cozaar] 100 mg PO DAILY 03/02/19 [History] Primidone [Mysoline] 150 mg PO QID 03/02/19 [History] Dorzolamide/Timolol [Cosopt 2%-0.5% Ophth Soln] 1 drop EYEBOTH ACBREAKFAST 03/14/20 [History] Latanoprost [Xalatan] 1 drop EYEBOTH BEDTIME 03/14/20 [History] Metoprolol Tartrate 50 mg PO BID 03/14/20 [History] Amoxicillin/Clavulanate K [Augmentin 875-125 MG] 1 tab PO BID #10 tablet 03/15/20 [Rx] Aspirin 81 mg PO DAILY #30 tab.chew 03/15/20 [Rx] atorvaSTATin [Lipitor] 40 mg PO BEDTIME #30 tablet 03/15/20 [Rx] Oxygen Therapy Mode: Room Air Patient Handouts: Amoxicillin; Clavulanic Acid tablets, Transient Ischemic Attack, [id number], Atorvastatin tablets, Aspirin, ASA oral tablets Referrals: Makenna Gill MD [Physician] - 05/21/20 1:00 pm Tyrone White MD [Primary Care Provider] - 03/25/20 10:00 am - Discharge Summary/Plan Comment DC Time >30 min.: No - Patient Data Vitals - Most Recent: Last Vital Signs Temp 97.6 F 03/15/20 07:55 Pulse 92 03/15/20 08:02 Resp 16 03/15/20 07:55 BP 143/60 H 03/15/20 08:02 Pulse Ox 90 L 03/15/20 07:55 Weight - Most Recent: 82.1 kg I&O - Last 24 hours: Intake & Output 03/14/20 03/15/20 03/15/20 22:59 06:59 14:59 Intake Total 250 1645 Output Total 350 Balance -100 1645 Lab Results - Last 24 hrs: Laboratory Results - last 24 hr 03/14/20 03/14/20 03/14/20 Range/Units 06:00 06:00 10:18 WBC (4.0-11.0) K/uL RBC (4.30-5.90) M/uL Hgb (12.0-16.0) g/dL Hct (36.0-46.0) % MCV (80.0-98.0) fL MCH (27.0-32.0) pg MCHC (31.0-37.0) g/dL RDW Std Deviation (28.0-62.0) fl RDW Coeff of Nahum (11.0-15.0) % Plt Count (150-400) K/uL MPV (7.40-12.00) fL Neut % (Auto) (48.0-80.0) % Lymph % (Auto) (16.0-40.0) % [place] % (Auto) (0.0-15.0) % Eos % (Auto) (0.0-7.0) % Baso % (Auto) (0.0-1.5) % Neut # (Auto) (1.4-5.7) K/uL Lymph # (Auto) (0.6-2.4) K/uL [place] # (Auto) (0.0-0.8) K/uL Eos # (Auto) (0.0-0.7) K/uL Baso # (Auto) (0.0-0.1) K/uL Nucleated RBC % /100WBC Nucleated RBCs # K/uL Sodium (136-145) mmol/L Potassium (3.5-5.1) mmol/L Chloride (98-107) mmol/L Carbon Dioxide (21.0-32.0) mmol/L BUN (7.0-18.0) mg/dL Creatinine (0.6-1.0) mg/dL Est Cr Clr Drug Dosing mL/min Estimated GFR (MDRD) ml/min Glucose (74-106) mg/dL POC Glucose (60-110) mg/dL Hemoglobin A1c (4.5 - 6.2) % Calcium (8.5-10.1) mg/dL Magnesium 1.9 (1.8-2.4) mg/dL Triglycerides (0-200) mg/dL Cholesterol (50-200) mg/dL LDL Cholesterol, Calc (60-180) mg/dL VLDL Cholesterol (5-55) mg/dL HDL Cholesterol (40-60) mg/dL Cholesterol/HDL Ratio (3.3-6.0) Vitamin D 25-Hydroxy 36.0 (30.0-100.0) ng/mL TSH 3rd Generation (0.36-3.74) uIU/mL Phenobarbital 23.3 (10.0-40.0) ug/mL 03/14/20 03/14/20 03/15/20 Range/Units 12:22 17:52 05:27 WBC (4.0-11.0) K/uL RBC (4.30-5.90) M/uL Hgb (12.0-16.0) g/dL Hct (36.0-46.0) % MCV (80.0-98.0) fL MCH (27.0-32.0) pg MCHC (31.0-37.0) g/dL RDW Std Deviation (28.0-62.0) fl RDW Coeff of Nahum (11.0-15.0) % Plt Count (150-400) K/uL MPV (7.40-12.00) fL Neut % (Auto) (48.0-80.0) % Lymph % (Auto) (16.0-40.0) % [place] % (Auto) (0.0-15.0) % Eos % (Auto) (0.0-7.0) % Baso % (Auto) (0.0-1.5) % Neut # (Auto) (1.4-5.7) K/uL Lymph # (Auto) (0.6-2.4) K/uL [place] # (Auto) (0.0-0.8) K/uL Eos # (Auto) (0.0-0.7) K/uL Baso # (Auto) (0.0-0.1) K/uL Nucleated RBC % /100WBC Nucleated RBCs # K/uL Sodium 144 (136-145) mmol/L Potassium 3.3 L (3.5-5.1) mmol/L Chloride 109 H (98-107) mmol/L Carbon Dioxide 27.5 (21.0-32.0) mmol/L BUN 25 H (7.0-18.0) mg/dL Creatinine 1.1 H (0.6-1.0) mg/dL Est Cr Clr Drug Dosing 30.93 mL/min Estimated GFR (MDRD) 47.2 ml/min Glucose 132 H (74-106) mg/dL POC Glucose 142 H 142 H (60-110) mg/dL Hemoglobin A1c (4.5 - 6.2) % Calcium 8.7 (8.5-10.1) mg/dL Magnesium 2.0 (1.8-2.4) mg/dL Triglycerides 83 (0-200) mg/dL Cholesterol 153 (50-200) mg/dL LDL Cholesterol, Calc 87 (60-180) mg/dL VLDL Cholesterol 16 (5-55) mg/dL HDL Cholesterol 49 (40-60) mg/dL Cholesterol/HDL Ratio 3.1 L (3.3-6.0) Vitamin D 25-Hydroxy (30.0-100.0) ng/mL TSH 3rd Generation 0.35 L (0.36-3.74) uIU/mL Phenobarbital (10.0-40.0) ug/mL 03/15/20 03/15/20 Range/Units 05:27 05:27 WBC 11.60 H (4.0-11.0) K/uL RBC 3.81 L (4.30-5.90) M/uL Hgb 11.7 L (12.0-16.0) g/dL Hct 37.4 (36.0-46.0) % MCV 98.2 H (80.0-98.0) fL MCH 30.7 (27.0-32.0) pg MCHC 31.3 (31.0-37.0) g/dL RDW Std Deviation 48.9 (28.0-62.0) fl RDW Coeff of Nahum 14 (11.0-15.0) % Plt Count 145 L (150-400) K/uL MPV 9.40 (7.40-12.00) fL Neut % (Auto) 79.5 (48.0-80.0) % Lymph % (Auto) 12.3 L (16.0-40.0) % [place] % (Auto) 6.4 (0.0-15.0) % Eos % (Auto) 1.5 (0.0-7.0) % Baso % (Auto) 0.3 (0.0-1.5) % Neut # (Auto) 9.2 H (1.4-5.7) K/uL Lymph # (Auto) 1.4 (0.6-2.4) K/uL [place] # (Auto) 0.7 (0.0-0.8) K/uL Eos # (Auto) 0.2 (0.0-0.7) K/uL Baso # (Auto) 0.0 (0.0-0.1) K/uL Nucleated RBC % 0.0 /100WBC Nucleated RBCs # 0 K/uL Sodium (136-145) mmol/L Potassium (3.5-5.1) mmol/L Chloride (98-107) mmol/L Carbon Dioxide (21.0-32.0) mmol/L BUN (7.0-18.0) mg/dL Creatinine (0.6-1.0) mg/dL Est Cr Clr Drug Dosing mL/min Estimated GFR (MDRD) ml/min Glucose (74-106) mg/dL POC Glucose (60-110) mg/dL Hemoglobin A1c 5.9 (4.5 - 6.2) % Calcium (8.5-10.1) mg/dL Magnesium (1.8-2.4) mg/dL Triglycerides (0-200) mg/dL Cholesterol (50-200) mg/dL LDL Cholesterol, Calc (60-180) mg/dL VLDL Cholesterol (5-55) mg/dL HDL Cholesterol (40-60) mg/dL Cholesterol/HDL Ratio (3.3-6.0) Vitamin D 25-Hydroxy (30.0-100.0) ng/mL TSH 3rd Generation (0.36-3.74) uIU/mL Phenobarbital (10.0-40.0) ug/mL Med Orders - Current: Current Medications Acetaminophen (Tylenol) 650 mg PO Q4H PRN PRN Reason: Pain Hydrocodone Bitart/Acetaminophen (Ivins 325-10 Mg) 1 tab PO BID PRN PRN Reason: Pain Last Admin: 03/14/20 17:48 Dose: 1 tab Documented by: Aspirin (Aspirin) 81 mg PO DAILY [facility] Last Admin: 03/15/20 08:09 Dose: Not Given Documented by: Atorvastatin Calcium (Lipitor) 40 mg PO BEDTIME [facility] Last Admin: 03/14/20 20:27 Dose: 40 mg Documented by: Azithromycin (Zithromax) 500 mg PO Q24H [facility] Last Admin: 03/14/20 11:55 Dose: 500 mg Documented by: Fish Oil (Fish Oil) 1 gm PO BID [facility] Last Admin: 03/15/20 08:12 Dose: Not Given Documented by: Furosemide (Lasix) 60 mg PO DAILY [facility] Last Admin: 03/15/20 08:01 Dose: 60 mg Documented by: Piperacillin Sod/Tazobactam (Sod 3.375 gm/ Sodium Chloride) 100 mls @ 200 mls/hr IV Q6H [facility] Last Admin: 03/15/20 04:35 Dose: 200 mls/hr Documented by: Losartan Potassium (Cozaar) 100 mg PO DAILY [facility] Last Admin: 03/15/20 08:02 Dose: 100 mg Documented by: Metoprolol Tartrate (Lopressor) 50 mg PO BID [facility] Last Admin: 03/15/20 08:02 Dose: 50 mg Documented by: Multivitamins/Minerals/Vitamin C (Tab-A-Rossana) 1 tab PO BID [facility] Last Admin: 03/15/20 08:01 Dose: 1 tab Documented by: Calcium Carb, Citrate/Vit D3 [ Calcium + D3 Er Tablet] 1 each PO BID [facility] Last Admin: 03/15/20 08:03 Dose: Not Given Documented by: Glucosam/Chond/Collagen/Hyalur [ Glucosamine Chondroitin] 1 each PO BID [facility] Last Admin: 03/15/20 08:03 Dose: Not Given Documented by: Primidone (Mysoline) 150 mg PO QID [facility] Last Admin: 03/15/20 05:02 Dose: Not Given Documented by: Discontinued Medications Celecoxib (Celebrex) 200 mg PO QPM [facility] Gadobenate Dimeglumine (Multihance) 20 ml IVPUSH ONETIME STA Stop: 03/14/20 12:43 Last Admin: 03/14/20 12:43 Dose: 16 ml Documented by: Heparin Sodium (Porcine) (Heparin Sodium) 5,000 units SUBCUT Q12H [facility] Last Admin: 03/14/20 16:50 Dose: Not Given Documented by: Sodium Chloride (Normal Saline) 1,000 mls @ 100 mls/hr IV Q10H [facility] Last Admin: 03/14/20 23:25 Dose: 100 mls/hr Documented by: Iopamidol (Isovue Multipack-370 (76%)) 100 ml IVPUSH ONETIME STA Stop: 03/13/20 16:13 Last Admin: 03/13/20 16:12 Dose: 100 ml Documented by: Metronidazole (Metronidazole) 250 mg PO Q8H [facility] Last Admin: 03/14/20 09:08 Dose: Not Given Documented by: - Exam Quality Assessment: Denies: Supplemental Oxygen General: Reports: Alert, Oriented, Cooperative, No Acute Distress Lungs: Reports: Clear to Auscultation, Normal Respiratory Effort Cardiovascular: Reports: Regular Rate, Regular Rhythm GI/Abdominal Exam: Normal Bowel Sounds, Soft, Non-Tender Back Exam: Reports: Normal Inspection, Full Range of Motion Extremities: Normal Inspection, Normal Range of Motion, Non-Tender, Pedal Edema (1+ nonpitting edema bilateral lower extremities) Wound/Incisions: Reports: Healing Well Neurological: Reports: No New Focal Deficit Psy/Mental Status: Reports: Alert, Normal Affect, Normal Mood
[2020-03-15] MEDS: Azithromycin 250 MG Tab PO SCH (10:19)
[2020-03-15] MEDS ORDERED: Potassium Chloride 10 MEQ Tab.ER PO ONE (10:43)
== END 2020-03-15 11:35 | disposition home health service (06) | DRG 69 ==
LOC: MW.ED 14:13 → MW.MS 17:42
PROVIDERS: ADMIT Internal Medicine; ATTEND Internal Medicine
DX: G45.9 Transient cerebral ischemic attack, unspecified (principal); J69.0 Pneumonitis due to inhalation of food and vomit; N17.9 Acute kidney failure, unspecified; F03.90 Unspecified dementia, unspecified severity, without behavioral disturbance, psychotic disturbance, mood disturbance, and anxiety; M54.9 Dorsalgia, unspecified; G89.29 Other chronic pain; I10 Essential (primary) hypertension; R47.81 Slurred speech; R26.9 Unspecified abnormalities of gait and mobility; Z66 Do not resuscitate; Z20.822 Contact with and (suspected) exposure to COVID-19; R53.1 Weakness; R25.1 Tremor, unspecified; E78.5 Hyperlipidemia, unspecified; H40.9 Unspecified glaucoma; H54.7 Unspecified visual loss; M19.90 Unspecified osteoarthritis, unspecified site; E78.00 Pure hypercholesterolemia, unspecified; K59.09 Other constipation; Z96.643 Presence of artificial hip joint, bilateral; K80.20 Calculus of gallbladder without cholecystitis without obstruction; Z88.5 Allergy status to narcotic agent; Z88.8 Allergy status to other drugs, medicaments and biological substances; Z79.899 Other long term (current) drug therapy
CPT/HCPCS: 0240U; 0296T; 36415; 70450; 70450-26; 70496; 70496-26; 70498; 70498-26; 70553; 70553-26; 71045; 71045-26; 76705; 76705-26; 80048; 80053; 80061; 80179; 80184; 80305-QW; 81001; 82306; 82962; 83036; 83690; 83735; 84100; 84443; 85025; 85610; 85730; 92610-GN; 93306; 97161-GP; 97530-GP; 99291; A9270-GY; A9577; J2543; J7030; J7050; Q9967